=== PATIENT | male | born 1955 | race Caucasian/White ===

== ENCOUNTER 2020-01-28 02:43 | Outpatient (CLI) | payer BC, SELFPAY ==
[2020-01-28 18:02] LABS: SARS-CoV-2 RNA PCR Negative
== END 2020-01-28 02:44 | disposition home or self-care (01) ==
LOC: ANHCOVIDDT 02:44
PROVIDERS: PCP Family Medicine; Visit Provider Internal Medicine Cardiovascular Disease
DX: Z01.812 Encounter for preprocedural laboratory examination (principal); Z20.828 Contact with and (suspected) exposure to other viral communicable diseases
CPT/HCPCS: 87635; C9803; U0003

== ENCOUNTER 2020-01-31 02:14 | Day surgery (SDC) | payer BC, SELFPAY ==
[2020-01-28 13:35] VITALS: BMI 30.2
[2020-01-31] VITALS (12 sets, daily range): BP systolic 109–168; BP diastolic 52–116; PULSE 72–111; RESP 11–23; TEMP 36.2; O2SAT 97–100
--- NOTE | 2020-01-31 08:30 | ECG_ITS ---
Measurements Intervals [place] Rate: 87 P: [place]: 0 QRS: 51 QRSD: 92 T: -2 QT: 353 QTc: 427 Interpretive Statements ATRIAL FIBRILLATION BORDERLINE ST-T WAVE ABNORMALITY- ANTEROLAT/INF LEADS BASELINE ARTIFACT- II, III, AVF, V3 ABNORMAL ECG Electronically Signed On 01-31-2020 8:52:36 CERTIFIED TEACHER ASSISTANT by Darwin Boland D.O.
[2020-01-31 08:54] LABS: INR 1.5; Prothrombin Time 17.4 Seconds (11.1-14.7)
[2020-01-31 08:55] LABS: Anion Gap 5 mmol/L (8-16); Blood Urea Nitrogen 13 mg/dL (9-20); Calcium 9.3 mg/dL (8.4-10.2); Carbon Dioxide 27 mmol/L (22-30); Chloride 108 mmol/L (98-107); Estimated CRCL calculation 81 ml/min; Estimated Glomerular Filt Rate > 60; Glucose 116 mg/dL (75-110); Magnesium 2.2 mg/dL (1.6-2.3); Potassium 4.2 mmol/L (3.4-5.0); Sodium 140 mmol/L (137-145)
[2020-01-31 09:12] LABS: T4 Thyroxine 7.06 ug/dL (5.53-11.0)
--- NOTE | 2020-01-31 09:44 | WPDHPUPDATE1 ---
History and Physical Update Update Date/Time: 01/31/20 09:44 History and Physical has been reviewed, including an updated exam of the patient. There are NO changes in the patient's condition. Date of service 01/31/2020 Subjective: No chest pain or shortness of breath Objective: Irregular irregular rhythm remains Assessment: Atrial fibrillation Plan: MARITZA guided cardioversion Risks, benefits, and alternatives have been discussed and questions answered. Patient agrees to proceed with procedure.
--- NOTE | 2020-01-31 09:45 | WPDMODSED ---
Moderate Sedation Note-Pt Data Patient Data Diagnosis: Atrial fibrillation Present Complaint: atrial fibrillation Procedure to be performed/Plan: 1. Multiplanar transesophageal echocardiography with color flow and pulse wave Doppler 2. Agitated saline study 3. Electrical cardioversion 4. Moderate sedation Allergies Allergy/AdvReac Type Severity Reaction Status Date / Time azithromycin AdvReac Severe BAD GI Unverified 01/28/20 13:39 TRACT REACTION THAT HAD EFFECTS FOR 6 MONTHS Home Medications Medication Instructions Recorded Confirmed Type atorvastatin 20 mg tablet 20 mg PO DAILY #90 tablet 12/27/19 01/28/20 Rx rivaroxaban 20 mg tablet 20 mg PO DAILY #30 tablet 01/03/20 01/28/20 Rx Adults Multivitamin 1 tab-cap PO DAILY 01/28/20 01/28/20 History Burkinan Ginseng 500 mg PO DAILY 01/28/20 01/28/20 History calcium carb-mag ox-zinc gluc 1 tablet PO DAILY 01/28/20 01/28/20 History lysine [L-Lysine] 500 mg PO DAILY 01/28/20 01/28/20 History Current Medications: Active Medications Sodium Chloride (Normal Saline Iv) 1,000 mls @ 30 mls/hr IV CONT .Q24H JOSE RAFAEL Sedation/Anesthesia: No previous sedation/anesthesia problems (including family history). [facility] Surgical History Surgical History History of right knee surgery removal of nail Family History Family History Mother Alzheimer disease Mother Family history of Alzheimer's disease Social History Social History Smoking status: Never smoker Second hand tobacco smoke exposure: No Smoking end date: 03/31/76 Alcohol intake: current Drinks per week: 2 Substance use: never Substance use type: does not use Living arrangements: with family Gender identity (if verbalized by the patient): Male Sexual Orientation (if Verbalized by the Patient): Straight or Heterosexual Spiritual care concerns: No Mod Sed Physical Exam Physical Exam Pre Procedural Exam: Normal: Appearance, Eyes, Ears, Nose, Neck, Throat, Airway, Lungs, Heart Size, Heart Rate, Neuro Exam, Abdomen, Extremities and Skin and Variation: Heart Rhythm ( irregular irregular) Hours since solid foods: 12 Hours since liquid intake: 12 Internal Medicine - PN: Obj Da Vital Signs Vital Signs: Vital Signs - 24 hr 01/31/20 08:40 Temperature 36.2 C L Pulse Rate 77 Respiratory Rate 18 Blood Pressure 133/91 H Pulse Oximetry 99 Meds/Results Medications: Active Medications Generic Name Dose Route Start Last Admin Trade Name Ila PRN Reason Stop Dose Admin Sodium Chloride 1,000 mls @ 30 mls/hr 01/31/20 05:55 Normal Saline Iv IV CONT .Q24H JOSE RAFAEL Labs CBC & Chem 7: 01/31/20 08:38 01/31/20 08:38 Labs: Laboratory Results - last 24 hr 01/31/20 01/31/20 01/31/20 08:38 08:38 08:38 PT 17.4 H INR 1.5 Sodium 140 Potassium 4.2 Chloride 108 H Carbon Dioxide 27 Anion Gap 5 L BUN 13 Creatinine 0.90 Estim Creat Clear Calc 81 Estimated GFR > 60 Glucose 116 H Calcium 9.3 Magnesium 2.2 TSH 2.160 Thyroxine (T4) 7.06 ASA Classification/Sedation ASA Classification/Sedation ASA Class: II Emergent: No Risks: Risks, benefits and alternatives explained and patient/family accepted plan for sedation. Patient re-evaluated immediately prior to sedation.
--- NOTE | 2020-01-31 10:22 | ECG_ITS ---
Measurements Intervals [place] Rate: 73 P: 40 [place]: 215 QRS: 21 QRSD: 87 T: 19 QT: 386 QTc: 428 Interpretive Statements SINUS RHYTHM WITH FIRST DEGREE AV BLOCK POSSIBLE LEFT ATRIAL ENLARGEMENT ABNORMAL ECG Electronically Signed On 01-31-2020 10:25:47 MANNEQUIN MOLDER by Darwin Boland D.O.
--- NOTE | 2020-01-31 10:26 | P.PCNTEECA_ITS ---
IRINEO with Cardioversion Date of procedure: 01/31/20 Procedure Type: 1. Multiplanar transesophageal echocardiography with color flow and pulse wave Doppler 2. Agitated saline study 3. Electrical cardioversion 4. Moderate sedation Diagnosis: atrial fibrillation Indications: atrial fibrillation Description of Procedure: after discussing the risks, benefits and alternatives of the procedure the patient agreeable via verbal and written informed consent. Risks discussed included esophageal rupture perforation, skin irritation or burn, shocking into a more problematic heart rhythm, stroke, , need for surgery, sore throat. After written informed consent was signed and after establishing continuous telemetry monitoring, pulse oxygenation and serial blood pressure assessments Time-out was taken and sedation started. Procedure start time 9:59 a.m. Procedure stop time 10:20 a.m. Complications: None Blood loss: None Sedation: 10 cc of viscous lidocaine gargle and swallow for topical anesthetic. 6 mg of Versed and 100 mcg of fentanyl given in divided dosages. Medications were administered and patient was monitored by Al Foster RN Findings: Irineo: normal left ventricular size and function with ejection fraction of 60%. Mild left ventricular hypertrophy. Normal right ventricular size and function. Mild left atrial enlargement. Normal right atrial size. there is epin-th-pubhtwgj mitral regurgitation with possible very mild posterior leaflet prolapse. aortic valve is trileaflet with trivial aortic insufficiency. Tricuspid valve is normal with mild tricuspid regurgitation. Pulmonic valve is normal trivial pulmonic insufficiency. There is no pericardial effusion. Aortic root is normal in size measuring 2.8 cm. The left atrial appendage is normal without evidence of mass or thrombus with pulse-wave velocities of up to 100 centimeters/second. The atrial septum is intact without agitated saline evidence or color flow evidence of shunting. Electrical cardioversion: Successful congregational of sinus rhythm using 100 joules of synchronized biphasic energy. Immediately after cardioversion, patient went into 2-1 flutter with a heart rate in the 120s but within a minute or 2 converted back to sinus rhythm without intervention Conclusion: 1. Normal left ventricular size and function with mild left ventricular hypertrophy 2. Fyuq-tw-tdwvqqoz mitral regurgitation 3. Mild tricuspid regurgitation 4. Intact atrial septum with negative agitated saline study 5. Normal left atrial appendage 6. successful electrical cardioversion with Normal sinus rhythm is restored using 100 joules of biphasic synchronized energy 7. Moderate sedation
--- NOTE | 2020-01-31 12:16 | SUR.PHASEII ---
1205-pt given D/C orders and instructions given. Questions answered and verbalized understanding. AOx4. PIV removed intact. Taken via wheelchair to waiting vehicle. No distress noted or verbalized at time of D/C.
== END 2020-01-31 12:05 | disposition home or self-care (01) ==
PROVIDERS: PCP Family Medicine; Visit Provider Internal Medicine Cardiovascular Disease
PROC: 5A2204Z Restoration of Cardiac Rhythm, Single (ICD-10-PCS; principal; 2020-01-31 09:30)
PROC: (CPT 93312; 2020-01-31 09:30)
DX: I48.91 Unspecified atrial fibrillation (principal); I34.0 Nonrheumatic mitral (valve) insufficiency; I36.1 Nonrheumatic tricuspid (valve) insufficiency
CPT/HCPCS: 36415; 80048; 83735; 84436; 84443; 85610; 92960; 93005; 93312; 93320; 93325; J2250; J3010; J7040

== ENCOUNTER 2020-02-29 01:55 | Outpatient (CLI) | payer BC, SELFPAY ==
[2020-02-29 19:16] LABS: SARS-CoV-2 RNA PCR Negative
== END 2020-02-29 01:56 | disposition home or self-care (01) ==
LOC: ANHCOVIDDT 01:56
PROVIDERS: PCP Family Medicine; Visit Provider Specialist
DX: Z01.812 Encounter for preprocedural laboratory examination (principal); Z20.828 Contact with and (suspected) exposure to other viral communicable diseases
CPT/HCPCS: 87635; C9803; U0003

== ENCOUNTER 2020-03-03 05:17 | Day surgery (SDC) | payer BC, SELFPAY ==
[2020-03-02 16:00] VITALS: BMI 30.3
[2020-03-03] VITALS (14 sets, daily range): BP systolic 120–149; BP diastolic 80–100; PULSE 81–100; RESP 12–17; TEMP 36.2–36.6; O2SAT 95–98; BMI 29.9
[2020-03-03 09:08] LABS: Basophils Absolute Auto 0.1 K/mm3 (0.0-0.1); Basophils Percent Auto 0.7 % (0.2-1.2); Eosinophils Absolute Auto 0.2 K/mm3 (0-0.3); Eosinophils Percent Auto 1.9 % (0-4.4); Hematocrit 50.8 % (42.0-52.0); Hemoglobin 16.7 g/dL (14.0-18.0); Immature Granulocyte Absolute 0.03 K/mm3 (0.00-0.031); Immature Granulocyte Percent A 0.4 % (0-0.5); Mean Corpuscular HGB Conc 32.9 g/dl (32-36); Mean Corpuscular Hemoglobin 28.9 pg (26-34); Mean Platelet Volume 9.7 fl (7.4-10.4); Monocytes Absolute Auto 0.6 K/mm3 (0.1-0.6); Monocytes Percent Auto 7.6 % (2.6-8.5); Neutrophils Absolute Auto 5.4 K/mm3 (1.3-6.7); Neutrophils Percent Auto 64.4 % (45.5-73.1); Platelet Count Result 146 k/mm3 (150-375); Red Blood Count 5.77 M/mm3 (4.6-6.20); Red Cell Distribution Width 13.4 % (11.5-14.5); White Blood Count 8.4 K/mm3 (4.5-10.0)
[2020-03-03 09:22] LABS: Anion Gap 7 mmol/L (8-16); Blood Urea Nitrogen 14 mg/dL (9-20); Calcium 9.3 mg/dL (8.4-10.2); Carbon Dioxide 27 mmol/L (22-30); Chloride 107 mmol/L (98-107); Estimated CRCL calculation 67 ml/min; Estimated Glomerular Filt Rate > 60; Glucose 119 mg/dL (75-110); Potassium 4.1 mmol/L (3.4-5.0); Sodium 141 mmol/L (137-145)
--- NOTE | 2020-03-03 10:04 | WPDMODSED ---
Moderate Sedation Note-Pt Data Patient Data Diagnosis: Persistent atrial fibrillation following attempt at cardioversion recently electrocardiographically abnormal Lexiscan stress test Present Complaint: no complaints Procedure to be performed/Plan: left heart catheterization Allergies Allergy/AdvReac Type Severity Reaction Status Date / Time azithromycin AdvReac Severe BAD GI Unverified 01/28/20 13:39 TRACT REACTION THAT HAD EFFECTS FOR 6 MONTHS Home Medications Medication Instructions Recorded Confirmed Type atorvastatin 20 mg tablet 20 mg PO DAILY #90 tablet 12/27/19 03/02/20 Rx rivaroxaban 20 mg tablet 20 mg PO DAILY #30 tablet 01/03/20 03/02/20 Rx Adults Multivitamin 1 tab-cap PO DAILY 01/28/20 03/02/20 History Tanzanian Ginseng 500 mg PO DAILY 01/28/20 03/02/20 History calcium carb-mag ox-zinc gluc 1 tablet PO DAILY 01/28/20 03/02/20 History lysine [L-Lysine] 500 mg PO DAILY 01/28/20 03/02/20 History Current Medications: Active Medications Sodium Chloride (Normal Saline Iv) 500 mls @ 100 mls/hr IV CONT .Q5H JOSE RAFAEL Sedation/Anesthesia: No previous sedation/anesthesia problems (including family history). [facility] Surgical History Surgical History History of right knee surgery removal of nail Family History Family History Mother Alzheimer disease Mother Family history of Alzheimer's disease Social History Social History Smoking status: Never smoker Second hand tobacco smoke exposure: No Smoking end date: 03/31/76 Alcohol intake: current Drinks per week: 2 Substance use: never Substance use type: does not use Living arrangements: with family Gender identity (if verbalized by the patient): Male Spiritual care concerns: No Mod Sed Physical Exam Physical Exam Pre Procedural Exam: Normal: Appearance, Neck, Throat, Airway, Lungs, Heart Size, Heart Rate, Neuro Exam and Extremities and Variation: Heart Rhythm ( atrial fibrillation) Hours since solid foods: 12 Hours since liquid intake: 12 Internal Medicine - PN: Obj Da Vital Signs Vital Signs: Vital Signs - 24 hr 03/03/20 09:16 Temperature 36.6 C Pulse Rate 90 Respiratory Rate 17 Blood Pressure 120/87 Pulse Oximetry 97 Meds/Results Medications: Active Medications Generic Name Dose Route Start Last Admin Trade Name Ila PRN Reason Stop Dose Admin Sodium Chloride 500 mls @ 100 mls/hr 03/03/20 08:25 Normal Saline Iv IV CONT .Q5H JOSE RAFAEL Labs CBC & Chem 7: 03/03/20 08:58 03/03/20 08:58 Labs: Laboratory Results - last 24 hr 03/03/20 03/03/20 08:58 08:58 WBC 8.4 RBC 5.77 Hgb 16.7 Hct 50.8 MCV 88.0 MCH 28.9 MCHC 32.9 RDW 13.4 Plt Count 146 L MPV 9.7 Immature Gran % (Auto) 0.4 Neut % (Auto) 64.4 Lymph % (Auto) 25.0 [place] % (Auto) 7.6 Eos % (Auto) 1.9 Baso % (Auto) 0.7 Lymph # (Auto) 2.10 [place] # (Auto) 0.6 Eos # (Auto) 0.2 Baso # (Auto) 0.1 Abs Immat Gran (auto) 0.03 Absolute Neuts (auto) 5.4 Absolute Nucleated RBC 0.0 Nucleated RBC % 0.0 Sodium 141 Potassium 4.1 Chloride 107 Carbon Dioxide 27 Anion Gap 7 L BUN 14 Creatinine 1.00 Estim Creat Clear Calc 67 Estimated GFR > 60 Glucose 119 H Calcium 9.3 ASA Classification/Sedation ASA Classification/Sedation ASA Class: II Emergent: No Risks: Risks, benefits and alternatives explained and patient/family accepted plan for sedation. Patient re-evaluated immediately prior to sedation.
--- NOTE | 2020-03-03 10:32 | P.PCNCC_ITS ---
Cardiac Cath Procedure Note Date of procedure:: 03/03/20 Performing physician:: Denton Schmidt MD Indication:: electrocardiographically abnormal nuclear stress test ( normal nuclear image) persistent atrial fibrillation Brief clinical history:: this is a 64-year-old man who presented with recent onset of atrial fibrillation. An attempt at cardioversion was successful but shortly thereafter atrial fib recurred. Following this a nuclear stress test was done in our office which demonstrated no perfusion abnormalities but ST segment changes. Procedure Procedure performed:: Left heart catheterization with left ventriculography and coronary angiography Sedation/Medication given:: fentanyl 50 mg Versed 2 mg case start time 10:10 a.m. case end time 10:29 a.m. sedation provided by Jayla Camarillo RN, trained observer Access site:: right femoral artery Estimated blood loss:: 10-15 cc Procedure note:: patient was brought to the cardiac catheterization lab in the postabsorptive state. The right femoral triangle was prepared and draped in the usual fashion. Anesthesia was provided with 1% lidocaine infiltrated locally. Using the modified Seldinger technique a 5 Stateless sheath was placed into the femoral artery left heart catheterization was carried out. A 5 Stateless angled pigtail catheter was used to record left-sided hemodynamics and to perform an an left ventricular ejection in the JORGE projection. After this the pigtail catheter was withdrawn. A 5 Stateless FL4 catheter was used to engage inject the left coronary artery in multiple projections. A 5 Stateless JR4 catheter was used to engage inject the right coronary artery. The procedure was then terminated angiogram was done of the femoral artery through the sheath after which I determined the sheath will be removed manually removed. Use taken to the holding area for sheath removal and recovery. He left the laboratory veterinarian with no evidence of a groin hematoma. Findings:: Hemodynamics: Central aortic pressure is 118/64 left ventricle 118/0 end-diastolic 10. No gradient across the aortic valve upon pullback. Left ventricle: The LV is normal in size all segments contract appropriately the global ejection fraction is visually estimated to be 60%. The mitral valve is competent. Left main coronary artery is nicely patent the LAD is a moderate caliber vessel extending down to around the apex. There is mild atherosclerosis throughout the LAD with several 40-50% lesions proximally, mid and distally. None of these appear to be approaching flow- limiting in nature. Circumflex is a large caliber vessel that is dominant to the posterior circulation. The stent midportion of the trunk of the circumflex also has modest atherosclerosis involving the origin of the major OM branch. This bifurcation has about 40-50% stenosis angiographically. The distal circumflex posterior vessels are free of disease right coronary artery is very small and non dominant. There is a 90% stenosis in the midportion of this small nondominant RCA Conclusion:: 1. left coronary dominant circulation with modest coronary disease as described above. No significant left coronary lesions 2. 90% stenosis in the midportion of the small non dominant RCA 3. normal left ventricular systolic function Denton Schmidt MD FACC
--- NOTE | 2020-03-03 16:58 | SUR.PHASEII ---
1655 D/C instructions reviewed with patient and questions answered;iv d/c'd cath intact pressure applied;pt transported to [facility] via where his transported home in private vehicle.
== END 2020-03-03 16:55 | disposition home or self-care (01) ==
PROVIDERS: PCP Family Medicine; Visit Provider Specialist
PROC: 4A023N7 Measurement of Cardiac Sampling and Pressure, Left Heart, Percutaneous Approach (ICD-10-PCS; CPT 93452; principal; 2020-03-03 10:00)
DX: I25.10 Atherosclerotic heart disease of native coronary artery without angina pectoris (principal); R94.39 Abnormal result of other cardiovascular function study; I48.91 Unspecified atrial fibrillation; E78.5 Hyperlipidemia, unspecified; G47.33 Obstructive sleep apnea (adult) (pediatric); I42.9 Cardiomyopathy, unspecified; Z86.73 Personal history of transient ischemic attack (TIA), and cerebral infarction without residual deficits; Z87.891 Personal history of nicotine dependence; Z79.01 Long term (current) use of anticoagulants
CPT/HCPCS: 36415; 80048; 85025; 93458; C1887; C1894; J1644; J2250; J3010; J7040

== ENCOUNTER 2020-05-15 09:33 | Inpatient (IN) | payer BC, SELFPAY ==
[2020-05-15] VITALS (11 sets, daily range): BP systolic 125–149; BP diastolic 73–96; PULSE 60–99; RESP 16–20; TEMP 36.1–36.6; O2SAT 96–98; BMI 29.5
--- NOTE | 2020-05-15 08:00 | ADMGEN ---
This patient, Jimmy Juarez, was admitted to IMU Room 201-01. Patient/family oriented to hospital policies and general routines including ID bracelet, bed and alarms, visiting hours, pain management, procedures, bathroom and other care routines, personal items, smoking policy, room service/diet, and visiting hours. Information on how to activate the Rapid Response Team has been discussed. Patient/Family are encouraged to report perceived risks to care and to ask questions if they do not understand what they are told or what they should do.
--- NOTE | 2020-05-15 08:49 | ECG_ITS ---
Measurements Intervals [place] Rate: 86 P: [place]: 0 QRS: 45 QRSD: 93 T: 27 QT: 339 QTc: 408 Interpretive Statements ATRIAL FIBRILLATION ABNORMAL ECG Electronically Signed On 05-15-2020 9:55:15 VISITOR SERVICES TECHNICIAN by Darwin Boland D.O.
--- NOTE | 2020-05-15 08:51 | PM.IMHP ---
H&P: HPI History of Present Illness Date/Time: 05/15/20 08:51 Chief Complaint: Atrial fibrillation, sotalol load Narrative: Jimmy Juarez is a 65 year old male with atrial fibrillation. He is a patient of [email or web address] who II began seeing a few months ago. He did have a TIA in May 2018. Ultrasound of the carotids showed some mild disease, echocardiogram was unremarkable as was ekg monitor. However last December he was found to be in atrial fibrillation. He was started on Xarelto 20 mg p.o. daily. He did have an outpatient cardioversion which was temporarily successful but he has reverted back into sinus rhythm. Stress test was slightly abnormal and he did undergo a cardiac catheterization February 2020 showing serial 40-50% lesions in LAD, 45-50% blockage and bifurcational circumflex stenosis. 90% mid small non dominant RCA. Echocardiogram showed ejection fraction 58% without valve problems. He saw electrophysiology for consideration of ablation versus rhythm management versus rate control. Patient prefers to be in sinus rhythm. At this point though he wishes to try anti rhythmic therapy. Therefore given his coronary disease, sotalol would be a good choice. He is therefore admitted for sotalol loading. He otherwise denies any chest pain, shortness of breath, syncope, presyncope, paroxysmal nocturnal dyspnea, orthopnea, edema, palpitations or bleeding problem Review of Systems Review of Systems: All systems reviewed & are unremarkable except as noted in HPI and below Constitutional: Constitutional: Denies weakness Eyes: Eyes: Denies blurry vision ENT: Reports Normal hearing present Cardiovascular: Cardiovascular: Denies chest pain Respiratory: Respiratory: Denies dyspnea Gastrointestinal: Gastrointestinal: Denies abdominal pain Genitourinary: Genitourinary: Denies dysuria Musculoskeletal: Musculoskeletal: Denies back pain and Denies neck pain Integumentary/Breasts: Skin/Breast: Denies dry skin Neurologic: Denies headache(s) and Denies numbness Psychiatric: Psychiatric: Denies anxiety and Denies confusion Endocrine: Endocrine: Denies fatigue Hematologic/Lymphatic: Hematologic/Lymphatic: Denies easy bleeding Allergic/Immunologic: Allergic/Immunologic: Denies GI upset with certain foods PMFSH Past Medical History Medical History (Updated 05/15/20 @ 08:54 by Ellis Barnes MD) BMI 30.0-30.9,adult History of TIA (transient ischemic attack) Hyperlipidemia New onset atrial fibrillation Surgical History Surgical History History of right knee surgery removal of nail Family History Family History Mother Alzheimer disease Mother Family history of Alzheimer's disease Social History Social History Smoking status: Never smoker Second hand tobacco smoke exposure: No Smoking end date: 03/31/76 Alcohol intake: current Drinks per week: 2 Substance use: never Substance use type: does not use Gender identity (if verbalized by the patient): Male Spiritual care concerns: No Meds Home Medications and Allergies Home Medications Medication Instructions Recorded Confirmed Type rivaroxaban 20 mg tablet 20 mg PO DAILY #30 tablet 01/03/20 05/15/20 Rx Adults Multivitamin 1 tab-cap PO DAILY 01/28/20 05/15/20 History Maltese Ginseng 500 mg PO DAILY 01/28/20 05/15/20 History calcium carb-mag ox-zinc gluc 1 tablet PO DAILY 01/28/20 05/15/20 History lysine [L-Lysine] 500 mg PO DAILY 01/28/20 05/15/20 History atorvastatin 20 mg tablet 20 mg PO DAILY #90 tablet 03/08/20 05/15/20 Rx Allergies Allergy/AdvReac Type Severity Reaction Status Date / Time azithromycin AdvReac Severe BAD GI Unverified 01/28/20 13:39 TRACT REACTION THAT HAD EFFECTS FOR 6 MONTHS Vital Signs Vital Signs -
[2020-05-15 09:50] LABS: Hematocrit 48.8 % (42.0-52.0); Hemoglobin 16.2 g/dL (14.0-18.0); Mean Corpuscular HGB Conc 33.2 g/dl (32-36); Mean Corpuscular Hemoglobin 29.2 pg (26-34); Mean Corpuscular Volume 88.1 fl (80-100); Mean Platelet Volume 10.9 fl (7.4-10.4); Platelet Count Result 141 k/mm3 (150-375); Red Blood Count 5.54 M/mm3 (4.6-6.20); Red Cell Distribution Width 13.2 % (11.5-14.5); White Blood Count 8.3 K/mm3 (4.5-10.0)
[2020-05-15] MEDS: SOTALOL HCL 80 MG TABLET PO ×2 (09:58→21:16)
[2020-05-15] MEDS: MULTIVITAMINS THERAPEUTIC TAB (*BKC) 1 TABLET PO (09:58)
[2020-05-15 10:00] LABS: Alanine Aminotransferase 42 U/L (4-50); Alkaline Phosphatase 67 U/L (38-126); Anion Gap 5 mmol/L (8-16); Aspartate Amino Transferase 30 U/L (17-59); Bilirubin,Total 0.5 mg/dL (0.2-1.3); Blood Urea Nitrogen 18 mg/dL (9-20); Calcium 9.4 mg/dL (8.4-10.2); Carbon Dioxide 28 mmol/L (22-30); Chloride 109 mmol/L (98-107); Cholesterol 117 mg/dL (0-200); Estimated CRCL calculation 66 ml/min; Estimated Glomerular Filt Rate > 60; Glucose 116 mg/dL (75-110); HDL Direct 30 mg/dL; Magnesium 1.9 mg/dL (1.6-2.3); Potassium 4.1 mmol/L (3.4-5.0); Sodium 142 mmol/L (137-145); Triglycerides 204 mg/dL (<150)
[2020-05-15 10:12] LABS: LDL Cholesterol Direct 67 mg/dL
[2020-05-15] MEDS: RIVAROXABAN 20 MG TABLET PO (16:47)
[2020-05-15] MEDS: ATORVASTATIN 20 MG TABLET PO (21:16)
--- NOTE | 2020-05-15 23:26 | PC.NURSE ---
Report called to Eleni CHENG in chest pain center.
[2020-05-16] VITALS (16 sets, daily range): BP systolic 104–134; BP diastolic 59–77; PULSE 58–85; RESP 14–20; TEMP 36.5–37.3; O2SAT 96–99
[2020-05-16] MEDS: MULTIVITAMINS THERAPEUTIC TAB (*BKC) 1 TABLET PO (08:24)
[2020-05-16] MEDS: SOTALOL HCL 80 MG TABLET PO ×2 (08:24→20:10)
--- NOTE | 2020-05-16 09:00 | ECG_ITS ---
Measurements Intervals [place] Rate: 69 P: 50 [place]: 228 QRS: 44 QRSD: 90 T: 35 QT: 394 QTc: 422 Interpretive Statements SINUS RHYTHM WITH FIRST DEGREE AV BLOCK POSSIBLE LEFT ATRIAL ENLARGEMENT BASELINE WANDER- II, AVR, AVF, V6 ABNORMAL ECG Electronically Signed On 05-16-2020 9:14:42 GRID MAKER by Darwin Boland D.O.
--- NOTE | 2020-05-16 09:52 | PM.PNCARD ---
Progress Note: A&P Assessment and Plan (1) Hyperlipidemia: Qualifiers: Hyperlipidemia type: mixed hyperlipidemia Qualified Code(s): E78.2 - Mixed hyperlipidemia Code(s): E78.5 - Hyperlipidemia, unspecified Status: Acute Assessment and Plan: Continue statin. (2) BMI 30.0-30.9,adult: Code(s): Z68.30 - Body mass index [BMI]30.0-30.9, adult Status: Acute Assessment and Plan: Improved lately (3) New onset atrial fibrillation: Code(s): I48.91 - Unspecified atrial fibrillation Status: Acute Assessment and Plan: Continue Xarelto. EKG today. Continue sotalol. DC home tomorrow after complete sotalol load (4) History of TIA (transient ischemic attack): Code(s): Z86.73 - Personal history of transient ischemic attack (TIA), and cerebral infarction without residual deficits Status: Acute Assessment and Plan: Continue anticoagulation Subjective Date/time seen: 05/16/20 09:52 Interval history: Reason for admission: 65-year-old for sotalol loading in atrial fibrillation Date of service 05/16/2020: He feels well. No chest pain, shortness of breath. He did convert to sinus rhythm Review of Systems Review of Systems: All systems reviewed & are unremarkable except as noted in HPI and below Constitutional: Constitutional: Denies fatigue, Denies headache(s) and Denies weakness Eyes: Eyes: Denies blurry vision ENT: Reports Normal hearing present, Denies headache(s) and Denies neck pain Cardiovascular: Cardiovascular: Denies chest pain and Denies dyspnea Respiratory: Respiratory: Denies dyspnea Gastrointestinal: Gastrointestinal: Denies abdominal pain Genitourinary: Genitourinary: Denies dysuria Musculoskeletal: Musculoskeletal: Denies back pain, Denies neck pain and Denies numbness Integumentary/Breasts: Skin/Breast: Denies dry skin Neurologic: Reports Normal hearing present, Denies confusion, Denies headache(s), Denies numbness and Denies weakness Psychiatric: Psychiatric: Denies anxiety and Denies confusion Endocrine: Endocrine: Denies fatigue Hematologic/Lymphatic: Hematologic/Lymphatic: Denies easy bleeding Allergic/Immunologic: Allergic/Immunologic: Denies GI upset with certain foods Exam Narrative: Exam Narrative: Alert oriented and appears stated age. Const: General: comfortable and no acute distress; No confusion Orientation/consciousness: No confusion HENMT: General nose exam: no epistaxis Eyes: Sclera: sclerae normal Neck: Neck: supple and no JVD Chest: Other: No reproducible chest wall pain to palpation Resp: Auscultation: clear to auscultation bilaterally Cardio: Rate: regular rate Rhythm: regular rhythm GI: Inspection: normal to inspection Skin: General skin exam: normal color Neuro: General: No confusion Cranial nerves: Yes Normal hearing present Cognition (Neuro): normal cognition Speech: normal speech Extrem: General: normal to inspection and no edema Psych: Mental Status: mental status grossly normal Objective Data Vital Signs Vital Signs: Vital Signs - 24 hr 05/15/20 09:58 05/15/20 10:00 05/15/20 12:00 Temperature 36.1 C L Pulse Rate 99 94 86 Respiratory Rate 16 Blood Pressure 146/96 H Pulse Oximetry 97 05/15/20 14:00 05/15/20 16:00 05/15/20 18:00 Temperature 36.2 C L Pulse Rate 85 83 80 Respiratory Rate 16 Blood Pressure 142/73 H Pulse Oximetry 97 05/15/20 20:00 05/15/20 21:16 05/15/20 22:00 Temperature 36.6 C Pulse Rate 79 94 77 Respiratory Rate 20 Blood Pressure 149/79 H Pulse Oximetry 98 05/15/20 23:45 05/16/20 00:00 05/16/20 01:53 Temperature 36.6 C Pulse Rate 92 77 82 Respiratory Rate 18 Blood Pressure 125/82 Pulse Oximetry 96 05/16/20 02:00 05/16/20 04:00 05/16/20 05:52 Temperature 36.5 C Pulse Rate 60 58 L 70 Respiratory Rate 14 Blood Pressure 115/77 Pulse Oximetry 97 05/16/20
[2020-05-16] MEDS: RIVAROXABAN 20 MG TABLET PO (17:06)
[2020-05-16] MEDS: ATORVASTATIN 20 MG TABLET PO (20:10)
[2020-05-17] VITALS (7 sets, daily range): BP systolic 120–124; BP diastolic 75–80; PULSE 56–69; RESP 18–19; TEMP 36.4; O2SAT 99
[2020-05-17] MEDS: SOTALOL HCL 80 MG TABLET PO (08:40)
[2020-05-17] MEDS: MULTIVITAMINS THERAPEUTIC TAB (*BKC) 1 TABLET PO (08:40)
--- NOTE | 2020-05-17 09:00 | ECG_ITS ---
Measurements Intervals [place] Rate: 65 P: 60 [place]: 231 QRS: 49 QRSD: 92 T: 45 QT: 415 QTc: 434 Interpretive Statements SINUS RHYTHM WITH FIRST DEGREE AV BLOCK POSSIBLE LEFT ATRIAL ENLARGEMENT ABNORMAL ECG Electronically Signed On 05-17-2020 9:36:45 SHOE LACER by Darwin Boland D.O.
--- NOTE | 2020-05-17 12:39 | PM.DS ---
DS: Admitting Diagnosis Admitting Diagnosis Admitting Diagnosis: Atrial fibrillation and sotalol loading DS: Discharge Diagnosis Discharge Diagnosis (1) New onset atrial fibrillation: Code(s): I48.91 - Unspecified atrial fibrillation Status: Acute Assessment and Plan: Continue sotalol 80 mg p.o. b.i.d. as well as Xarelto 20 mg daily (2) Hyperlipidemia: Qualifiers: Hyperlipidemia type: mixed hyperlipidemia Qualified Code(s): E78.2 - Mixed hyperlipidemia Code(s): E78.5 - Hyperlipidemia, unspecified Status: Acute Assessment and Plan: Continue statin (3) History of TIA (transient ischemic attack): Code(s): Z86.73 - Personal history of transient ischemic attack (TIA), and cerebral infarction without residual deficits Status: Acute Assessment and Plan: On anticoagulation DS: Summary Hospital Course Hospital Course: Patient is 65-year-old male who has atrial fibrillation. He was admitted for sotalol loading. He was initiated on sotalol 80 mg p.o. b.i.d.. He did convert with sotalol to sinus rhythm. He tolerated this medication well. Labs were drawn while in the hospital which were generally unremarkable. He stayed in the hospital up until full load and his QTC did not significantly prolonged. EKGs were performed on a daily basis. At this point he is okay to go home Time Spent with Patient Time attestation: Total time spent providing and/or coordinating discharge services: Greater than 30 minutes Exam Narrative: Exam Narrative: Alert oriented appears to be in no acute distress Const: General: comfortable and no acute distress; No in distress HENMT: General nose exam: Normal nares present Eyes: Sclera: sclerae normal Neck: Neck: supple and no JVD Resp: Auscultation: clear to auscultation bilaterally Cardio: Rate: regular rate Rhythm: regular rhythm GI: GI Palp: Yes Soft to palpation and No Tenderness to palpation present (GI) Skin: General skin exam: normal color Neuro: General: gait normal Motor exam (neuro): Normal motor muscle tone present throughout Extrem: General: normal to inspection and no edema Psych: Mental Status: mental status grossly normal DS: Data Data Completed and Pending Completed studies during hospitalization: EKG performed showing no significant QT prolongation with sotalol Pending studies at discharge: None Discharge Plan Discharge Attending physician on discharge: Cehlo Barnes Discharging Clinician: Ellis Barnes Anticipated Discharge Date/Time: 05/17/20 12:42 Patient Disposition: Home, Self-Care Activity: no shower and may shower Diet: heart healthy Wound Care Instructions: follow printed instructions Discharge Instructions: Discharge diet: Heart healthy. Discharge disposition: Home Discharge condition: Good Patient should return to the office if he has any chest pain, shortness of breath, syncope, presyncope, palpitations or any other worrisome signs or symptoms. Patient Instructions: Antibiotic Form Stand Alone Forms: General Discharge Information Follow-up/Referrals: Ellis Barnes MD [Physician] - Discharge Medications: New sotalol 80 mg Tablet 80 mg PO Q12HR Qty: 60 RF: 11 Continued Xarelto 20 mg tablet 20 mg PO DAILY Qty: 30 RF: 6 Hold Instructions: Resume on 03/07/20. RESUME with the evening meal on Saturday, March 07, 2020 Adults Multivitamin 1 tab-cap PO DAILY RF: 0 atorvastatin 20 mg tablet 20 mg PO DAILY Qty: 90 RF: 3 Discontinued Portuguese Ginseng 500 mg PO DAILY RF: 0 lysine [L-Lysine] 500 mg Tablet 500 mg PO DAILY RF: 0 calcium carb-mag ox-zinc gluc 250 mg/70 mg 1 tablet PO DAILY RF: 0 Date of admission: 05/15/20 07:41 Primary Care Provider: Colleen Martell Admitting Provider: Ellis Barnes Attending physician on admission: Ellis Barnes Condition: Stable
== END 2020-05-17 13:47 | disposition home or self-care (01) | DRG 310 ==
LOC: ANHIMU 11:41 → ANHCPC 05-17 12:44 → ANHIMU 05-19 08:51
PROVIDERS: Admitting Provider Internal Medicine Cardiovascular Disease; PCP Family Medicine; Visit Provider Internal Medicine Cardiovascular Disease
DX: I48.91 Unspecified atrial fibrillation (principal); Z51.81 Encounter for therapeutic drug level monitoring; E78.2 Mixed hyperlipidemia; Z86.73 Personal history of transient ischemic attack (TIA), and cerebral infarction without residual deficits; Z79.01 Long term (current) use of anticoagulants
CPT/HCPCS: 36415; 80053; 80061; 83735; 85027; 93005; A9270

== ENCOUNTER → 2022-08-13 09:29 | Outpatient (CLI) | payer MEDICARE, SELFPAY ==
--- NOTE | ~2022-08-13 | MR_ITS ---
EXAMINATION: MR chest wo/w con DATE: 08/13/2022 11:06 INDICATION: Chest mass. TECHNIQUE: Magnetic resonance imaging (MRI) of the chest was performed without and with 18 mL MultiHa nce intravenous contrast. COMPARISON: Chest CT 03/02/2012 FINDINGS: There is mild chronic height loss of multiple thoracic vertebral bodies. There is mild thor acic spondylosis. There is a 4.4 x 2.8 x 4.6 cm nonenhancing mass of increased T1-weighted signal int ensity in the left posterior mediastinum at T10 and T11. IMPRESSION: 1. 4.6 cm cystic mass in the left posterior mediastinum at T10 and T11, stable from 03/02/12, likely b enign. The differential diagnosis includes lymphangioma and foregut duplication cyst. Reviewed, dictated and finalized at location A. IMPRESSION: 1. 4.6 cm cystic mass in the left posterior mediastinum at T10 and T11, stable from 03/02/12, likely benign. The differential diagnosis includes lymphangioma a nd foregut duplication cyst.
--- NOTE | ~2022-08-13 | MR_ITS ---
EXAMINATION: MR abdomen wo/w con DATE: 08/13/2022 11:06 INDICATION: Liver mass. TECHNIQUE: Magnetic resonance imaging (MRI) of the abdomen was performed without and with 18 mL Multi [place] intravenous contrast. COMPARISON: Chest CT 03/02/2012 FINDINGS: There is a 4.4 x 2.7 cm nonenhancing mass of increased T1-weighted signal intensity in the left poste rior mediastinum at T10 and T11. There is a 15 mm cyst in the right hepatic lobe. The gallbladder, sp kwame, pancreas, adrenal glands, and kidneys are normal. There are no dilated loops of bowel. There ar e no pathologically enlarged lymph nodes. There is no free intraperitoneal fluid. IMPRESSION: 1. 15 mm benign cyst in the liver. 2. 4.4 cm cyst in the left posterior mediastinum at T10 and T11, stable from 03/02/2012. The different ial diagnosis includes lymphangioma and foregut duplication cyst. Reviewed, dictated and finalized at location A. IMPRESSION: 1. 15 mm benign cyst in the liver. 2. 4.4 cm cyst in the left posterior mediastinum at T10 and T11, stable from . The differential diagnosis includes lymphangioma and foregut duplicati on cyst.
== END ==
PROVIDERS: PCP Family Medicine; Visit Provider Physician Assistant
DX: R22.2 Localized swelling, mass and lump, trunk (principal); R16.0 Hepatomegaly, not elsewhere classified; K76.89 Other specified diseases of liver
CPT/HCPCS: 71552; 74183; A9577

== ENCOUNTER 2023-08-22 00:38 | Day surgery (SDC) | payer MEDICARE, SELFPAY ==
[2023-08-18 14:08] VITALS: BMI 28.0
--- NOTE | 2023-08-18 14:37 | PC.NURSE ---
Spoke with _PATIENT_ regarding medication _XARELTO_. Pt. verbalizes understanding that the last dose of XARELTO is to be taken on 08/19/2023__ and the Endoscopist will instruct them when to restart after the procedure.
[2023-08-22 07:00] VITALS: BP 134/81; PULSE 87; RESP 16; TEMP 36.2; O2SAT 99
[2023-08-22] MEDS: LACTATED RINGERS 1,000 ML 150 ML IV CONT (07:13)
--- NOTE | 2023-08-22 07:17 | WPDANESEPPF ---
Anes - Initial Pre Proc Eval Procedure: Operation Date: 08/22/23 08:00 Proposed Procedures p Esophagogastroduodenoscopy & Colonoscopy - Pk Sotomayor MD Date/Time: 08/22/23 07:17 Surgeon: Pk Sotomayor MD Pre Op Diagnosis: Dysphagia, personal hx of colon polyps Patient Data Age: 68 Gender: M Height: 1.78 m Weight: 89.3 kg Last Vital Signs Temp 36.2 C L 08/22/23 07:00 Pulse 87 08/22/23 07:00 Resp 16 08/22/23 07:00 BP 134/81 08/22/23 07:00 Pulse Ox 99 08/22/23 07:00 O2 Del Method Room Air 08/22/23 07:00 Allergies Allergy/AdvReac Type Severity Reaction Status Date / Time azithromycin AdvReac Severe BAD GI Verified 08/22/23 06:57 TRACT REACTION THAT HAD EFFECTS FOR 6 MONTHS Home Medications Medication Instructions Recorded Confirmed Type Adults Multivitamin 1 tab-cap PO DAILY 01/28/20 08/22/23 History sotalol 80 mg tablet 80 mg PO Q12HR #60 tabs 05/17/20 08/22/23 Rx valacyclovir 1 gram tablet 1,000 mg PO Q12H PRN cold sores 10/12/21 08/22/23 Rx (Valtrex) #60 tabs rivaroxaban 20 mg tablet (Xarelto) See Rx Instructions .Route 05/06/22 08/22/23 Rx .COMPLEX #30 tabs atorvastatin 20 mg tablet 20 mg PO DAILY #100 tabs 04/13/23 08/22/23 Rx sildenafil 25 mg tablet 25 mg PO DAILY PRN sexual activity 06/24/23 08/22/23 Rx #7 tabs Lactobacillus acidophilus 2 mmu cells PO DAILY 08/18/23 08/22/23 History Patient hx anesthesia problems: none Family hx anesthesia problems: none Results Review: All pre-operative results and documents have been reviewed as part of the pre-operative evaluation. [facility] Past Medical History Medical History (Updated 08/22/23 @ 07:17 by Adriano Martinez DO) BMI 30.0-30.9,adult History of TIA (transient ischemic attack) Hyperlipidemia Kidney stone Liver cyst MRI abdomen, 2022, benign Mediastinal mass MRI July 2022, likely benign, patient declined CT surgery referral New onset atrial fibrillation LEANN (obstructive sleep apnea) cpap Surgical History Surgical History History of right knee surgery removal of nail Family History Family History Mother Alzheimer disease Mother Family history of Alzheimer's disease Social History Social History Smoking status: Never smoker Second hand tobacco smoke exposure: No Smoking end date: 03/31/76 Alcohol intake: current Drinks per week: 2 Alcohol use details: DRINKS/WINE/BEER Substance use: never Substance use type: does not use Lack of Transportation: No Lack of Food: Never True Current Housing: I Have Housing Concerned About Future Housing: No Difficulty Paying Gas/Electric Bills: No Difficulty Paying for Meds: No Currently Unemployed: No Education: Master's Degree or Higher Difficulty w/ Childcare or Family Care: No Living arrangements: with family Gender identity (if verbalized by the patient): Male Sexual Orientation (if Verbalized by the Patient): Straight or Heterosexual Spiritual care concerns: No Agree to blood products: Yes Anes - Eval Final PreProcedure Day of Procedure 08/22/23 07:17 Patient weight: overweight Heart: regular rate and rhythm Lungs: clear to auscultation Airway: Mallampati scale class II Neurological: alert and oriented Last oral intake: >/= 8 hours ASA classification: III Emergent: no Anesthetic plan: proceed Anesthesia type and monitoring: general GIVS and standard monitoring Results Review: All pre-operative results and documents have been reviewed as part of the pre-operative evaluation. Informed Consent: The patient's anesthetic plan and its attendant risks and benefits were discussed with the patient/family/POA. Questions were solicited and answers provide
--- NOTE | 2023-08-22 07:52 | PM.HPGS ---
History of Present Illness History of Present Illness Consent: Risks, benefits, and alternatives have been discussed and questions answered. Patient agrees to proceed with procedure. Chief complaint: Dysphagia, personal hx of colon polyps Narrative: Jimmy Juarez is a 68 year old male with dysphagia to pills last 2 months, last colonoscopy with polyp 7 years ago Review of Systems Review of Systems: All systems reviewed & are unremarkable except as noted in HPI and below PMFSH Past Medical History Medical History (Updated 08/22/23 @ 07:54 by Pk Sotomayor MD) BMI 30.0-30.9,adult Colon polyp Dysphagia History of TIA (transient ischemic attack) Hyperlipidemia Kidney stone Liver cyst MRI abdomen, 2022, benign Mediastinal mass MRI July 2022, likely benign, patient declined CT surgery referral New onset atrial fibrillation LEANN (obstructive sleep apnea) cpap Surgical History Surgical History History of right knee surgery removal of nail Family History Family History Mother Alzheimer disease Mother Family history of Alzheimer's disease Social History Social History Smoking status: Never smoker Second hand tobacco smoke exposure: No Smoking end date: 03/31/76 Alcohol intake: current Drinks per week: 2 Alcohol use details: DRINKS/WINE/BEER Substance use: never Substance use type: does not use Lack of Transportation: No Lack of Food: Never True Current Housing: I Have Housing Concerned About Future Housing: No Difficulty Paying Gas/Electric Bills: No Difficulty Paying for Meds: No Currently Unemployed: No Education: Master's Degree or Higher Difficulty w/ Childcare or Family Care: No Living arrangements: with family Gender identity (if verbalized by the patient): Male Sexual Orientation (if Verbalized by the Patient): Straight or Heterosexual Spiritual care concerns: No Agree to blood products: Yes Meds Home Medications and Allergies Home Medications Medication Instructions Recorded Confirmed Type Adults Multivitamin 1 tab-cap PO DAILY 01/28/20 08/22/23 History sotalol 80 mg tablet 80 mg PO Q12HR #60 tabs 05/17/20 08/22/23 Rx valacyclovir 1 gram tablet 1,000 mg PO Q12H PRN cold sores 10/12/21 08/22/23 Rx (Valtrex) #60 tabs rivaroxaban 20 mg tablet (Xarelto) See Rx Instructions .Route 05/06/22 08/22/23 Rx .COMPLEX #30 tabs atorvastatin 20 mg tablet 20 mg PO DAILY #100 tabs 04/13/23 08/22/23 Rx sildenafil 25 mg tablet 25 mg PO DAILY PRN sexual activity 06/24/23 08/22/23 Rx #7 tabs Lactobacillus acidophilus 2 mmu cells PO DAILY 08/18/23 08/22/23 History Allergies Allergy/AdvReac Type Severity Reaction Status Date / Time azithromycin AdvReac Severe BAD GI Verified 08/22/23 06:57 TRACT REACTION THAT HAD EFFECTS FOR 6 MONTHS Vital Signs Vital Signs - 24 hr 08/22/23 07:00 Temperature 97.2 F L Pulse Rate 87 Respiratory Rate 16 Blood Pressure 134/81 Pulse Oximetry 99 Oxygen Delivery Room Air Exam Const: General: comfortable and no acute distress HENMT: Face/Nose/Sinus: Normal nares present Eyes: General: appearance normal, both eyes and all related structures Neck: Neck: no JVD Resp: Auscultation: clear to auscultation bilaterally Cardio: Rate: regular rate Rhythm: regular rhythm GI: Inspection: non-distended GI Palp: Yes Soft to palpation Skin: General skin exam: normal color Neuro: General: gait normal Speech: normal speech Extrem: General: normal to inspection Psych: Mental Status: mental status grossly normal Assessment and Plan Assessment and plan (1) Dysphagia: Code(s): R13.10 - Dysphagia, unspecified Status: Acute Assessment and Plan: egd
--- NOTE | 2023-08-22 08:15 | SUR.OPER ---
EGD START 757, END 801 COLONOSCOPY START 806, END 814
[2023-08-22 08:19] VITALS: BP 75/40; PULSE 78; RESP 23; O2SAT 98
[2023-08-22 08:29] VITALS: BP 83/54; PULSE 79; RESP 24; O2SAT 98
[2023-08-22 08:39] VITALS: BP 113/70; PULSE 74; RESP 26; O2SAT 100
== END 2023-08-22 08:49 | disposition home or self-care (01) ==
PROVIDERS: PCP Family Medicine; Visit Provider Internal Medicine Gastroenterology
PROC: 0DJ08ZZ Inspection of Upper Intestinal Tract, Via Natural or Artificial Opening Endoscopic (ICD-10-PCS; CPT 43235; principal; 2023-08-22 08:00)
DX: Z12.11 Encounter for screening for malignant neoplasm of colon (principal); K64.8 Other hemorrhoids; K57.30 Diverticulosis of large intestine without perforation or abscess without bleeding; K21.00 Gastro-esophageal reflux disease with esophagitis, without bleeding; K29.50 Unspecified chronic gastritis without bleeding; E78.5 Hyperlipidemia, unspecified; G47.33 Obstructive sleep apnea (adult) (pediatric); Z99.89 Dependence on other enabling machines and devices; Z79.01 Long term (current) use of anticoagulants; Z98.890 Other specified postprocedural states; Z86.010 Personal history of colon polyps; Z86.73 Personal history of transient ischemic attack (TIA), and cerebral infarction without residual deficits
CPT/HCPCS: 43239; G0105; 88305; J2704; J7120

== ENCOUNTER 2023-08-29 09:38 | Outpatient (CLI) | payer MEDICARE, SELFPAY ==
--- NOTE | ~2023-08-29 | CT_ITS ---
Clinical Indication: Mediastinal mass CT Scan of the Chest with Contrast: Technique: Contiguous sections were acquired throughout the chest after intravenous administration of 75 cc of Omnipaque 350. Dose reduction technique was used on this scan by utilizing automated exposu re control and iterative reconstruction technique. The dose-length product (DLP) was 368.53 mGy-cm. Findings: There is no evidence of any significant mediastinal, hilar or axillary lymphadenopathy. There is no f illing defect in the pulmonary arterial tree to suggest pulmonary embolus. There is no evidence of ao rtic dissection or aneurysm. There is no evidence of pleural or pericardial effusion. There is a 4.5 x 3.1 x 4.1 cm ovoid homogene ous circumscribed mass in the right paravertebral region, possibly involving the pleura, at the T11 l evel (axial image 102 for example). The lungs are clear. No pulmonary nodules or infiltrates are noted. Images through the upper abdomen reveal no abnormalities. Impression: 4.5 x 3.1 x 4.1 cm circumscribed homogeneous ovoid mass in the left paravertebral region at T11. This is essentially unchanged as compared to prior MR dated 08/13/2022, and by report, probably without si gnificant change since 03/02/2012. This is compatible with a benign lesion. Reviewed, dictated and finalized at location . Impression: 4.5 x 3.1 x 4.1 cm circumscribed homogeneous ovoid mass in the left paravertebr al region at T11. This is essentially unchanged as compared to prior MR dated , and by report, probably without significant change since 03/02/2012. T his is compatible with a benign lesion.
[2023-08-29 09:59] LABS: Estimated Glomerular Filt Rate > 60
== END 2023-08-29 09:39 | disposition home or self-care (01) ==
PROVIDERS: PCP Family Medicine; Visit Provider Physician Assistant Medical
DX: J98.59 Other diseases of mediastinum, not elsewhere classified (principal); K76.89 Other specified diseases of liver
CPT/HCPCS: 71260; Q9967

== ENCOUNTER 2024-12-29 11:50 | Emergency (ER) | payer MEDICARE, SELFPAY ==
[2024-12-29 11:55] VITALS: BP 158/90; PULSE 74; RESP 19; TEMP 36.6; O2SAT 98
[2024-12-29 12:13] LABS: Hematocrit 47.7 % (42.0-52.0); Hemoglobin 15.5 g/dL (14.0-18.0); Immature Granulocyte Percent A 0.3 % (0-0.5); Lymphocytes Absolute Auto 1.94 K/mm3 (0.9-3.2); Mean Corpuscular HGB Conc 32.5 g/dl (32-36); Mean Corpuscular Hemoglobin 28.8 pg (26-34); Mean Corpuscular Volume 88.7 fl (80-100); Nucleated Red Blood Cells Absolute Auto 0.000 K/mm3 (0.0-0.012); Nucleated Red Blood Cells Perc 0.0 % (0.0-0.2); Platelet Count Result 149 k/mm3 (150-375); Red Blood Count 5.38 M/mm3 (4.6-6.20); White Blood Count 8.0 K/mm3 (4.5-10.0)
--- OUTSIDE RECORDS SUMMARY | 2024-12-29 12:16 | XMS_ITS | Clinical Summary ---
Author Organization [facility] Address [facility] [place] [address] Care Team Providers Care Chief Wellness Officer Name Role Phone Leticia Michel MD Primary Care Provider [phone] Allergies Active Allergy Reactions Criticality Noted Date Comments Azithromycin Unknown Medium 01/20/2020 GI issues Medications multivit-mins/iro n/folic/lycop (CENTRUM MEN ORAL) Take 1 tablet by mouth daily Active atorvastatin (LIPITOR) 20 mg tablet Take 1 tablet (20 mg total) by mouth daily 0 Active valACYclovir (VALTREX) 1 gram tablet Take 1 tablet (1,000 mg total) by mouth daily as needed 2 Active sildenafiL (VIAGRA) 25 mg tablet Take 1 tablet (25 mg total) by mouth as needed 3 Active inulin (PREBIOTIC FIBER ORAL) Take by mouth Active red yeast rice 600 mg tablet Take by mouth Active Xarelto 20 mg tablet TAKE 1 TABLET BY MOUTH DAILY 100 tablet 2 5 Active psyllium 0.52 gram capsule Take 1 capsule (0.52 g total) by mouth daily Active sotaloL (BETAPACE) 80 mg tabletIndications :Paroxysmal atrial fibrillation (HCC) TAKE 1 TABLET BY MOUTH TWICE DAILY 200 tablet 5 Active Active Problems Problem Noted Date Diagnosed Date Encounter for monitoring sotalol therapy 022 Coronary artery disease invo lving [place] coronary artery of [place] heart without angina pectoris 05/02/2020 Cardiomyopathy 02/28/2020 LEANN (obstructive sleep apnea) 01/20/2020 Hyperlipidemia LDL goal <100 01/20/2020 Chronic anticoagulation 01/20/2020 Atrial fibrillation 01/20/2020 Lung mass 09/17/2012 Standard chest x-ray abnormal 03/19/2012 Encounters Date Type Department Care Team Description 10/27/2024 10:30 AM CDT Office Visit [facility] [address] [facility] [address] [place] [id number] Skinny Amado MD Hypersomnia with sleep apnea (Primary Dx); LEANN (obstructive sleep apnea); Overweight (BMI 25.0-29.9) from Last 3 Months Immunizations Immunization Administration Dates Next Due Pfizer SARS-CoV-2 Monovalent Vaccination (12+ Yrs) PURPLE 06/12/2020,05/22/2020 Surgical History Surgery Date Site/Laterality Comments KNEE SURGERY Medical History Medical History Date Comments Atrial fibrillation (HCC) Stroke (HCC) Heart disease AFIB Family History Medical History Relation Name Comments Emphysema Father Alzheimer's disease Mother Ashlyn Juarez Heart disease Sister Lisa Vazquez Relation Name Status Comments Father Mother Ashlyn Juarez Sister Lisa Vazquez Social History Tobacco Use Types Packs/Day Years Used Date Smoking Tobacco: Former Cigarettes 0.1 2 0 1971 - 1973 Smokeless Tobacco: Never Tobacco Cessation:Counseling Given: Not Answered Alcohol Use Standard Drinks/Week Comments Yes 0 (1 standard drink = 0.6 oz pur e alcohol) rarely Sex and Gender Information Value Date Recorded Sex Assigned at Not on file Legal Sex Male 9:25 AM DATABASE ADMINISTRATION ASSOCIATE Gender Identity Male 02/12/2021 10:46 AM DATABASE ADMINISTRATION ASSOCIATE Sexual Orientation Straight 02/12/2021 10 :46 AM DATABASE ADMINISTRATION ASSOCIATE Obstetrics History Last Filed Vital Signs Vital Sign Reading Time Taken Comments Blood Pressure 131/76 10/27/2024 10:07 AM CDT Pulse 61 10/27/2024 10:07 AM CDT Temperature 36.3 C (97.4 F) 04/13/2020 4:19 PM DATABASE ADMINISTRATION ASSOCIATE Respiratory Rate 18 10/27/2024 10:07 AM CDT Oxygen Saturation 95% 10/27/2024 10:07 AM CDT Inhaled Oxygen Concentration - - Weight 92.1 kg (203 lb) 10/27/2024 10:07 AM CDT Height 177.8 cm (5' 10) 10/27/2024 10:07 AM CDT Body Mass Index 29.13 10/27/2024 10:07 AM CDT Plan of Treatment Health Maintenance Due Date Last Done Comments Colon Cancer Screening-Colonoscopy 1954 Depression Screening 1954 Hepatitis C Screening 1954 Hepatitis B Screening 1972 Zoster Vaccine (1 of 2) 2004 Abdominal Aortic Aneurysm (A AA) Screen 2019 Well Visit 65+ 2019 Pneumococcal vaccine 65+ (2 of 2 - PCV20 or PCV21) 02/08/2022 02/08/2021 Fall Risk Assessment 07/19/2022 07/19/2021, 01/11/2021, 05/02/2020, Additional history exists DTaP/Tdap/Td Vaccine (2 - Td or Tdap) 05/06/2024 05/06/2014 Covid-19 Vaccine (4 - 2024-2 6 season) 2024 01/30/2021, 06/12/2020, 05/22/2020 Influenza Vaccine (#1) 2024 , 01/05/2019, 12/29/2016, Additional history exists Insurance [employer] [place] [employer] MEDIC[place]VANTAGE [facility] MEDICARE ADVANTAGE Care Teams Chief Wellness Officer Relationship Specialty Start Date End Date Leticia Michel MD PCP - General Family Medicine 01/11/21
--- OUTSIDE RECORDS SUMMARY | 2024-12-29 12:16 | XMS_ITS | Clinical Summary ---
Author Organization [employer] [facility] Address [address] [place] [address] Care Team Providers Care Plate Worker Name Role Phone Unavailable Primary Care Provider Unavailabl e Social History Tobacco Use Types Packs/Day Years Used Date Smoking Tobacco: Never Assessed Sex and Gender Information Value Date Recorded Sex Assigned at Not on file Legal Sex Male 10:09 PM CDT Gender Identity Not on file Sexual Orientation Not on file Plan of Treatment Health Maintenance Due Date Last Done Comments DTAP/TDAP/TD VACCINES (1 - Tdap) 1973 FIT-DNA Q 3 years 1999 FIT/FOBT Q 1 year 1999 Flex Sig/CT Colonography Q 5 years 1999 PNEUMOCOCCAL VACCINE 50+ YEARS (1 of 1 - PCV) 04/17/19 05 ZOSTER VACCINE (1 of 2) 2004 INFLUENZA VACCINE (#1) 2024 COLORECTAL SCREENING 11/06/2028 11/06/2018 Colorectal Cancer Screening 11/06/2028 RSV VACCINE (60+ or ) (1 - 1-dose 75+ series) 2029
--- OUTSIDE RECORDS SUMMARY | 2024-12-29 12:16 | XMS_ITS | Clinical Summary ---
Author Organization [facility] Address [address] [place] [address] Phone Care Team Providers Care Rfid Manager Name Role Phone Colleen Martell MD Primary Care Provi maría Allergies Active Allergy Reactions Criticality Noted Date Comments Azithromycin Other (see Comments) 11/06/2018 GI PROBLEMS Cephalexin Other (see Comments) Medium 10/14/2018 Gi problems Medications Multiple Vitamins-Mineral s (CENTRUM SILVER PO) Take 1 Tab by mouth daily. Active MAGNESIUM PO Take 1 Tab by mouth daily. Active aspirin EC 81 MG Tablet Delayed Response Take 81 mg by mouth daily. Active atorvastatin (LIPITOR) 20 MG Tablet Take 20 mg by mouth daily. Active Family History Medical History Relation Name Comments Chronic Obstructive Pulmonary Disease Father Cerebral Anuerysm Mother Relation Name Status Comments Father Mother Social History Tobacco Use Types Packs/Day Years Used Date Smoking Tobacco: Former Cigarettes 3 4 0 10/14/1964 - 10/14/1968 Smokeless Tobacco: Never Alcohol Use Standard Drinks/Week Comments Yes 2 (1 standard drink = 0.6 oz pur e alcohol) Sex and Gender Information Value Date Recorded Sex Assigned at Not on file Legal Sex Male 11:32 AM CDT Gender Identity Not on file Sexual Orientation Not on file Occupation Industry Job Start Date Job End Date [employer] Not on file Not on file Not on file Last Filed Vital Signs Vital Sign Reading Time Taken Comments Blood Pressure 123/90 11/06/2018 8:25 AM CDT Pulse 67 11/06/2018 8:25 AM CDT Temperature 36 C (96.8 F) 11/06/2018 8:25 AM CDT Respiratory Rate 18 11/06/2018 8:25 AM CDT Oxygen Saturation 97% 11/06/2018 8:25 AM CDT Inhaled Oxygen Concentration - - Weight 92.1 kg (203 lb) 11/06/2018 6:27 AM CDT Height 177.8 cm (5' 10) 11/06/2018 6:27 AM CDT Body Mass Index 29.13 11/06/2018 6:27 AM CDT Plan of Treatment Health Maintenance Due Date Last Done Comments Hepatitis C Virus (HCV) Screening 1955 TdaP Immunization 1954 Cologuard 1999 Immunochemical Fecal Occult Blood 1999 Pneumococcal Immunization (5 0+ years) (1 of 1 - PCV) 2004 Zoster Immunization (1 of 2) 2004 Colonoscopy 11/07/2023 11/06/2018 Colorectal Cancer Screening 11/07/2023 Influenza Immunization (#1) 2024 SARS-COV-2 Immunization ( season) 2024 Respiratory Syncytial Virus (RSV) Immunization (Adult) (1 - 1-dose 75+ series) 2029 Hepatitis B Immunization Aged Out No longer eligible based on patient's age to complete this topic Human Papillomavirus (HPV) Immunization Aged Out No longer eligible b ased on patient's age to complete this topic Meningococcal Immunization (ACWY) Aged Out No longer eligible based on patient's age to complete this topic Rotavirus Immunization Aged Out No lo nger eligible based on patient's age to complete this topic Insurance Care Teams Rfid Manager Relationship Specialty Start Date End Date Colleen Martell MD [address] [place] [id number] PCP - General Family Medicine 09/15/18
[2024-12-29 12:26] LABS: Alanine Aminotransferase 50 U/L (6-50); Albumin Level 4.8 g/dL (3.5-5.1); Alkaline Phosphatase 69 U/L (38-126); Anion Gap 11 mmol/L (4-12); Aspartate Amino Transferase 42 U/L (17-59); Bilirubin,Total 0.8 mg/dL (0.2-1.3); Blood Urea Nitrogen 17 mg/dL (9-20); Calcium 9.3 mg/dL (8.4-10.2); Carbon Dioxide 25 mmol/L (22-30); Chloride 105 mmol/L (98-107); Estimated CRCL calculation 65 ml/min; Estimated Glomerular Filt Rate > 60; Glucose 113 mg/dL (65-110); Potassium 4.5 mmol/L (3.4-5.0); Sodium 141 mmol/L (137-145); Total Protein 8.1 g/dL (6.3-8.2)
[2024-12-29 12:27] LABS: INR 1.6; Prothrombin Time 18.4 Seconds (11.1-14.7)
[2024-12-29 12:28] LABS: Partial Thromboplastin Time 36.6 Seconds (22.3-36.8)
--- NOTE | 2024-12-29 12:49 | ED.GENADULT ---
HPI - General Adult General Chief complaint: GI Bleed Stated complaint: Rectal bleeding x 4 days Time Seen by Provider: 12/29/24 11:55 History of Present Illness HPI narrative: This is a 69-year-old male history of hemorrhoids on Xarelto for atrial fibrillation presenting for rectal bleeding. Patient has been having intermittent hemorrhoids with bleeding for the last 4 months. Typically comes and goes over last 4 days has gotten worse. He has started wearing a female menstrual pad in his underwear which unfortunately has not controlled the bleeding adequately and he has stained his sheets several nights in a row. Otherwise he feels well with no symptoms of anemia such as lightheadedness dizziness chest pain shortness of breath. He does not have any abdominal pain nausea vomiting or diarrhea. Last colonoscopy was approximately 1 year ago when he had a polyp removed. GI doctor is Dr. Stallworth. Related Data Home Medications ?Medication ?Instructions ?Recorded ?Confirmed ?Last Taken ?Type Adults Multivitamin 1 tab-cap PO DAILY 01/28/20 12/22/24 08/21/23 History Lactobacillus acidophilus 2 mmu cells PO DAILY 08/18/23 12/22/24 08/21/23 History Allergies Allergy/AdvReac Type Severity Reaction Status Date / Time azithromycin AdvReac Severe BAD GI Verified 12/29/24 12:01 TRACT REACTION THAT HAD EFFECTS FOR 6 MONTHS [facility] Past Medical History Medical History (Updated 12/29/24 @ 16:29 by Gabriel Culp MD) Atypical pigmented skin lesion Colon polyp Dysphagia LEANN (obstructive sleep apnea) cpap Kidney stone Mediastinal mass MRI July 2022, likely benign, patient declined CT surgery referral Liver cyst MRI abdomen, 2022, benign History of TIA (transient ischemic attack) New onset atrial fibrillation BMI 30.0-30.9,adult Hyperlipidemia Surgical History Surgical History History of right knee surgery removal of nail Family History Family History Mother Alzheimer disease Mother Family history of Alzheimer's disease Social History Social History Smoking status: Never smoker Second hand tobacco smoke exposure: No Smoking end date: 03/31/76 Alcohol intake: current Drinks per week: 2 Alcohol use details: DRINKS/WINE/BEER Substance use: never Substance use type: does not use Lack of Transportation: No Lack of Food: Never True Current Housing: I Have Housing Concerned About Future Housing: No Difficulty Paying Gas/Electric Bills: No Difficulty Paying for Meds: No Currently Unemployed: No Education: Master's Degree or Higher Difficulty w/ Childcare or Family Care: No Living arrangements: with family Gender identity (if verbalized by the patient): Male Sexual Orientation (if Verbalized by the Patient): Straight or Heterosexual Spiritual care concerns: No Agree to blood products: Yes Exam Narrative: APPEARANCE: No apparent distress. Head: atraumatic. EYES: EOMI, NOSE: Atraumatic NECK: Trachea midline RESPIRATORY: No increased rate of breathing CTAB CARDIOVASCULAR: RRR, no peripheral edema ABDOMINAL: Non-distended soft nontender Rectal exam: Visible external hemorrhoid, red blood around the rectum MUSCULOSKELETAl: No obvious deformities NEURO: Alert. Moving 4/4 extremities SKIN:: Warm, dry. Normal color PSYCHIATRIC: Normal affect Course Vital Signs Vital signs: Vital Signs Temperature 97.8 F 12/29/24 11:55 Pulse Rate 74 12/29/24 11:55 Respiratory Rate 19 12/29/24 11:55 Blood Pressure 158/90 H 12/29/24 11:55 Pulse Oximetry 98 12/29/24 11:55 Oxygen Delivery Room Air 12/29/24 11:55 Temperature 97.8 F 12/29/24 11:55 Pulse Rate 60 12/29/24 15:20 Respiratory Rate 18 12/29/24 15:20 Blood Pressure 143/85 H 12/29/24 15:20 Pulse Oximetry 100 12/29/24 15:20 Oxygen Delivery Room Air 12/29/24 11:55 Medical Decision Making [facility] Narrative Medical decision making narrative: -Course: 69-year-old male presenting with rectal bleeding x4 days. Digital rectal exam showed a external hemorrhoid and red blood around the rectum. Initial hemoglobin is 15.5. Repeat after 4 hours and 1 L of LR was 13.5 which is felt to mostly dilutional. Regardless patient been bleeding for 4 days and still has a very elevated hemoglobin. Hemorrhoid bleeding is likely to be self-limited. 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 Barnes to see if we could hold his Xarelto for several days until the bleeding is controlled. -DDX includes but is not limited to: Hemorrhoids, diverticular bleed, rectal fissure, neoplasm -Co-morbidities complicating care: AFib on Xarelto Vital Signs Vital Signs: Vital Signs Temperature 97.8 F 12/29/24 11:55 Pulse Rate 74 12/29/24 11:55 Respiratory Rate 19 12/29/24 11:55 Blood Pressure 158/90 H 12/29/24 11:55 Pulse Oximetry 98 12/29/24 11:55 Oxygen Delivery Room Air 12/29/24 11:55 Temperature 97.8 F 12/29/24 11:55 Pulse Rate 60 12/29/24 15:20 Respiratory Rate 18 12/29/24 15:20 Blood Pressure 143/85 H 12/29/24 15:20 Pulse Oximetry 100 12/29/24 15:20 Oxygen Delivery Room Air 12/29/24 11:55 Lab Data 12/29/24 16:02 12/29/24 12:06 Labs: Lab Results 12/29/24 12/29/24 Range/Units 12:06 16:02 WBC 8.0 (4.5-10.0) K/mm3 RBC 5.38 (4.6-6.20) M/mm3 Hgb 15.5 13.5 L (14.0-18.0) g/dL Hct 47.7 41.9 L (42.0-52.0) % MCV 88.7 (80-100) fl MCH 28.8 (26-34) pg MCHC 32.5 (32-36) g/dl RDW 13.7 (11.5-14.5) % Plt Count 149 L (150-375) k/mm3 MPV 10.0 (7.4-10.4) fl Immature Gran % (Auto) 0.3 (0-0.5) % Neut % (Auto) 62.0 (45.5-73.1) % Lymph % (Auto) 24.3 (18.3-44.2) % [place] % (Auto) 10.9 H (2.6-8.5) % Eos % (Auto) 1.6 (0-4.4) % Baso % (Auto) 0.9 (0.2-1.2) % Lymph # (Auto) 1.94 (0.9-3.2) K/mm3 [place] # (Auto) 0.9 H (0.1-0.6) K/mm3 Eos # (Auto) 0.1 (0-0.3) K/mm3 Baso # (Auto) 0.1 (0.0-0.1) K/mm3 Abs Immat Gran (auto) 0.02 (0.00-0.031) K/mm3 Absolute Neuts (auto) 5.0 (1.3-6.7) K/mm3 Absolute Nucleated RBC 0.000 (0.0-0.012) K/mm3 Nucleated RBC % 0.0 (0.0-0.2) % PT 18.4 H (11.1-14.7) Seconds INR 1.6 APTT 36.6 (22.3-36.8) Seconds Sodium 141 (137-145) mmol/L Potassium 4.5 (3.4-5.0) mmol/L Chloride 105 (98-107) mmol/L Carbon Dioxide 25 (22-30) mmol/L Anion Gap 11 (4-12) mmol/L BUN 17 (9-20) mg/dL Creatinine 0.97 (0.7-1.3) mg/dL Estim Creat Clear Calc 65 ml/min Estimated GFR > 60 (59 - ) Glucose 113 H (65-110) mg/dL Calcium 9.3 (8.4-10.2) mg/dL Total Bilirubin 0.8 (0.2-1.3) mg/dL AST 42 (17-59) U/L ALT 50 (6-50) U/L Alkaline Phosphatase 69 (38-126) U/L Total Protein 8.1 (6.3-8.2) g/dL Albumin 4.8 (3.5-5.1) g/dL Blood Type O Positive Antibody Screen Negative Discharge Plan Discharge Clinical Impression: Bleeding hemorrhoid, Chronic anticoagulation Patient Disposition: Home Condition: Stable Instructions: Antibiotic Form, Hemorrhoids (ED) Additional Instructions: You were seen in the emergency department for hemorrhoids. Please hold your Xarelto for 48 hrs as that is contributing to your bleeding for 48. If your bleeding stops please call your sack sewer machine to resume your Xarelto. If you develop severe rectal bleeding, weakness fatigue chest pain difficulty breathing or feel like he may faint please return to the ER for re-evaluation. Patient Language: Upper Sorbian Prescriptions: No Action sotalol 80 mg Tablet 80 mg PO Q12HR Qty: 60 11RF Acidophilus Tablet 2 mmu cells PO DAILY omeprazole 20 mg capsule,delayed release(DR/EC) 20 mg PO .daily Qty: 30 2RF Adults Multivitamin 1 tab-cap PO DAILY valacyclovir [Valtrex] 1 gram tablet 1,000 mg PO Q12H PRN (Reason: cold sores) Qty: 60 3RF Rx Instructions: Take 1 tablet PO BID for 3-5 days prn cold sores Xarelto 20 mg tablet See Rx Instructions .ROUTE .COMPLEX Qty: 30 0RF Dose Instruction: TAKE 1 TAB BY MOUTH DAILY WITH EVENING MEAL Rx Instructions: TAKE 1 TAB BY MOUTH DAILY WITH EVENING MEAL atorvastatin 20 mg tablet 20 mg PO DAILY Qty: 100 3RF sildenafil 25 mg tablet 25 mg PO DAILY PRN (Reason: sexual activity) Qty: 7 7RF Rx Instructions: administer 30 minutes to 4 hours before activity Follow-up/Referrals: Leticia Michel MD [Primary Care Provider, Family Practice] Ellis Barnes MD [Physician, Cardiology] - 3 Days Referral Note: Bleeding hemorrhoids on Xarelto Pk Sotomayor MD [Physician, Gastroenterology] - 3 Days Referral Note: Bleeding hemorrhoids
[2024-12-29 13:45] VITALS: BP 144/73; PULSE 68; RESP 16; O2SAT 99
[2024-12-29] MEDS: LACTATED RINGERS 1,000 ML 999 ML IV CONT (13:45)
[2024-12-29 14:57] VITALS: BP 143/85; PULSE 67; RESP 15; O2SAT 100
[2024-12-29 15:20] VITALS: BP 143/85; PULSE 60; RESP 18; O2SAT 100
--- NOTE | 2024-12-29 15:20 | PC.NURSE ---
Report given to Pat CHENG, all questions answered
[2024-12-29 16:10] LABS: Hematocrit 41.9 % (42.0-52.0); Hemoglobin 13.5 g/dL (14.0-18.0)
[2024-12-29 16:45] VITALS: BP 151/90; PULSE 64; RESP 16; TEMP 36.6; O2SAT 100
== END 2024-12-29 16:55 | disposition home or self-care (01) ==
PROVIDERS: Emergency Provider Emergency Medicine; PCP Family Medicine
DX: K64.4 Residual hemorrhoidal skin tags (principal); I48.91 Unspecified atrial fibrillation; E78.5 Hyperlipidemia, unspecified; G47.33 Obstructive sleep apnea (adult) (pediatric); Z87.442 Personal history of urinary calculi; Z86.0100 Personal history of colon polyps, unspecified; Z86.73 Personal history of transient ischemic attack (TIA), and cerebral infarction without residual deficits; Z87.891 Personal history of nicotine dependence; Z79.01 Long term (current) use of anticoagulants
CPT/HCPCS: 36415; 80053; 85014; 85018; 85025; 85610; 85730; 86850; 86900; 86901; 96360; 99283; J7120

== ENCOUNTER 2025-02-23 01:22 | Day surgery (SDC) | payer MEDICARE, SELFPAY ==
[2025-02-22 10:03] VITALS: BMI 28.8
[2025-02-23] VITALS (7 sets, daily range): BP systolic 105–136; BP diastolic 66–95; PULSE 53–66; RESP 12–17; TEMP 36.4; O2SAT 97–99
--- OUTSIDE RECORDS SUMMARY | 2025-02-23 01:24 | XMS_ITS | Data Portability ---
Author Organization [facility], Main Office Address [address] [place] [address] [address] [place] [address] Care Team Providers Care Human Resource Consultant Name Role Phone UCHE CRAFT Primary Care Provider [phone] Assessment No assessment recorded. Plan of Treatment Reminders Order Date Submit Date Provider Last Modified By Organization Details Last Modified Time Details Appointments FOLLOW UP 60 2025 12:00P M Lida Sandoval MD Not available Not available Not available Lab None recorded . Referral None recorded . Procedures None recorded . Surgeries None recorded . Imaging None recorded . Medication Orders None recorded . Patient TargetsNo targets recorded. Patient Instructions Encounter Date Encounter Id Patient Instructions Last Modified By Organization Details Last Modified Time 01/18/2025 [id number] He will f/u in early/mid-March and we will start his IRC series with treating his RP internal hemorrhoid. We will then wait 3 weeks and treat his LL. We will wait another 3 weeks and treat his RA. I d/w them that he will be a total of 5 - 6 treatments depending on how he does. On today's visit I spent a total of 55 minutes prepping for his visit (reviewing shared records), [id number] with them answering their many questions and documenting. Not available 01/18/2025 18:20:41 Reason for Referral None Reported. Problems Name Problem SNOMED Code Status Onset Date Resolution Date Notes Provider Name and Address Organization Details Recorded Time History of transient ischemic attack 473416866 Active 2024 Lida Sandoval MD [address], [place], [address], [facility] 18:17:57 Mixed hyperlipidem ia 030944220 Active 2024 Lida Sandoval MD [address] [place] [address],[address] [place] [address], [facility] 18:17:58 Paroxysmal atrial fibrillation 958459752 Active 2024 Lida Sandoval MD [address] [place] [address],[place] [address], [facility] 18:18:01 History of polyp of colon 719956179 Active 2024 Lida Sandoval MD [address] [place] [address],[address] [place] [address] 5, [facility] 18:18:03 Chronic idiopathic constipation 55772285 Active 2024 Lida Sandoval MD [address] [place] [address],[address] [address], [facility] 18:18:06 External hemorrhoids 91660862 Active 2024 Lida Sandoval MD [address] [place] [address],[address] [address], [facility] 18:18:08 Internal hemorrhoids grade II 397793572 Active 202401/18/25 : No tx - [place] Tx #1: 04/13/25 Lida Sandoval MD [address] [place] [address],[address] [place] [address], [facility] 18:19:18 Problem Notes None recorded. Procedures Surgical History Date Name Laterality Status Provider Name and Address Organization Details Recorded Time Anoscopy completed Lida Sandoval MD [address] [place] [address],[address], [place] [address], [facility] 01/18/2025 18:05:59 4 Colonoscopy completed Lida Snadoval MD [address] [place] [address],[address], [place], [address] [place] [address] [facility] 01/18/2025 17:59:44 Imaging Results None recorded. Procedure Notes None recorded. Medical Equipment None Reported. Allergies Allergen ID Allergen Name Allergen Category Reaction Reaction Severity Criticality Documentation Date Start Date Code Code System Note Provider Name and Address Organization Details Recorded Time 65242 azithromy shirley medicatio n other Not available Not available 01/16/20252018 57857 RxNorm GI PROBL EMS Not Available [employer] [facility] [employer] 10:02:28 58268 cephalexi n medicatio n other Not available [facility] 01/16/20252018 2231 RxNorm Gi probl ems Not Available [employer] 10:02:28 Medications Name Sig Start Date Stop Date Status Note LastModified by Organization Details LastModified Time atorvastatin 20 mg tablet Take 1 tablet every day by oral route. active Not Available Not Available No t Available aspirin 325 mg tablet Take 1 tablet every day by oral route. active : He only takes this when he goes off of his Xarelt o. Not Available Not Available Not Available sotalol 80 mg tablet Take 1 tablet twice a day by oral route. active Not Available Not Available No t Available Acidophilus active Not Available Not A vailable Not Available Centrum Silver active Not Available No t Available Not Available Xarelto 20 mg tablet Take 1 tablet every day by oral route. active Not Available Not Available No t Available Vitals None Recorded Social History Question Answer Notes LastModified by Organizat ion Details LastModified Time Tobacco Smoking Status Former Smoker Quit many years ago Lida Sandoval MD [address] [place] [address],[address], [place], [address], [facility] 01/18/2025 17:58:48 Do You Have An Advance Directive? Yes Information not available 01/18/2025 Alcohol Use Yes Information n ot available 01/18/2025 Alcohol Amount Occasional Information not available 01/18/2025 Caffeine Use Yes Information not available 01/18/2025 Caffeine Amount 14 Oz Coffee Daily Information not available 01/18/2025 Illicit Drug Use No Information not available 01/18/2025 What Was The Date Of Your Most Recent Tobacco Screening? 01/18/2025 Information not available 01/18/2025 How Much Tobacco Do You Smoke? 1 PPD Information not available 01/18/2025 How Many Years Have You Smoked Tobacco? 3 Information not available 01/18/2025 Sex: Male Functional Status Question Answer Note LastModified by Organization D etails LastModified Time Do you or have you ever used any other forms of tobacco or nicotine? No Information not available 01/18/2025 Mental Status None recorded. Family History Relationship Description Onset Age of this Age Resolved Age Notes LastModified by Organization Details LastModified Time Father Malignant neoplasm of prostate 60 Not available 2024 17:58:12 Mother Alzheimer's disease Not available 2024 18:00:49 Medical History Condition Response Coronary Artery Disease N Other N Atrial Fibrillation Y Kidney Stones Y Hyperthyroidism N Hernia N Depression N COPD N Hypothyroidism N Glaucoma N Accidental Bowel Leakage N Headaches/Migraines N Deep Vein Thrombosis N Cardiac Dysrhythmia N Anxiety Disorder N MRSA/VRE Exposure N Genital Herpes N Diverticulosis Y Cancer N Stroke Y Head Trauma Y Crohn's Disease N Genital Warts N Liver Disease/Hepatitis N HIV/AIDS N High Cholesterol Y Irritable Bowel Syndrome N Kidney Disease N Autoimmune Disease N Anemia N Celiac Disease N Arthritis/Gout Y Anal/Rectal Trauma/Injury N Diabetes N Cataracts Y Bleeding Disorder N Seizures/Epilepsy N Congestive Heart Failure (CHF) N Diverticulitis N Heart Attack N Asthma N Reflux/GERD N Ulcerative Colitis N Sleep Apnea Y Mitral Valve Prolapse N Aneurysm N Heart Disease N Pulmonary Embolism N Hypertension N Colon/Rectal Polyps Y Past Encounters Encounter ID Performer Location Encounter Start Date Encounter Closed Date Diagnosis/Indication Diagnosis SNOMED-CT Code Diagnosis ICD10 Code Diagnosis IMO Codes Diagnosis Note [id number] Lida Sandoval MD Main Office [address] [address] 01/18/2025 12:04:22 01/18/2025 13:22:22 Internal hemorrhoids grade II [id number] K64.1 3720690 Stage 2 - 3 internal hemorrhoid s: I discussed hemorrhoid s in general with him and his as well as the treatment options. He now understand s that any non-surgic al procedure (infrared coagulatio n or banding) would be done on his internal hemorrhoid s. I do think he would benefit from IRC. I gave him full informed consent including risks, benefits and alternativ es (I will need to more fully detail potential side effects before treating him). All questions were answered. He does want to have treatment, however they are going to be out of town a lot in the next few month (and specifical ly a month long trip to [facility] starting in early February). This does not leave enough time to get into his treatment series before going out of the country (and I am going to have to space his treatment out given that he is on Xarelto). We decided to wait until the first of 2025 before starting his series. I d/w them that being on the Xarelto does increase the (already very low) risk of having bleeding from the treatment. I want him to stay on it throughout his series however because he does have the paroxysmal a. fib. and did have a TIA from this in 2019. External hemorrhoids 239 96595 K64.4 81595 These will improve with IRC. He understand s the only way to directly treat external hemorrhoid s/skin tags would be with a surgical excision. He does not wish to pursue this and his hemorrhoid s are not bad enough to warrant surgery. He should continue using his bidet at home and the moist wipes when he is not at home. Chronic id iopathic constipation 81400636 K59.04 8835 This is not bad. He of course needs to consistent ly eat a high fiber diet and drink plenty of water. I advised he should start a low dose of docusate (start with 100 mg daily) and very slowly increase. I d/w him he is shooting for daily BM's that are consistent ly soft (Finley Scale type 4) and easy to pass. He should take it daily and forever once he figures out what dose works for him. He can also continue his acidophilu s. History of polyp of colon 602662326 Z86.0100 3567497 He evidently did have polyps on at least a couple of his scopes. His last scope was on 08/22/23 and was negative. He is due for a repeat at 5 years. Paroxysmal atrial fibrillation 046715927 I48.0 51107 He evidently has been in sinus rhythm since his last cardiovers ion and with the sotalol. He is taking the xarelto daily. His cardiologi st is OK with him taking a full 325 mg aspirin for short amounts of time if he does have heavy bleeding. I advised he needs to take the aspirin with him when he goes on his trips just in case he does have bleeding. Mixed hyperlipidemia 267 356731 E78.2 61153 He takes the atorvastat in and follows routinely with his PCP. History of transient ischemic attack 436471914 Z86.73 [id number] This was in 2019 and was probably due to his a. fib. He is on the Xarelto as above. Health Concerns Section Related Observation LastModified by Organization Detai ls LastModified Time None Recorded Concern Status LastModified by Organization Details LastModified Time None Recorded Advance Directives Directive Y: Payers Insurance Date Sequence Insurance Name Policy Number Policy Fletcher Covered Member ID Fletcher Member ID Guarantor Name 01/18/2025 1 [facility] (MEDICARE REPLACEMENT/A DVANTAGE - PPO) [id number] Jimmy Juarez [id number] Jimmy Juarez 01/18/2025 1 MEDICARE [place]: [place] Jimmy Juarez [id number] Jimmy Juarez Notes Date Note Type Note Provider Name and Address Organization Details Recorded Time 01/18/2025 text/html ROS as noted in the HPI This is a very pleasant 69 year old man who has had symptoms from his hemorrhoids on and off for just over a year. His only symptom is bleeding. Bleeding: He has had some episodes of very heavy bleeding with BM's and wiping. His most recent episode was from 12/24-12/29. This was so heavy that he presented to an ER. Evidently his H&H were stable, even after fluids were given. He was sent home without treatment. He does take chronic xarelto for paroxysmal a. fib. He went of of it after going to the ER (he bridged with a 325 mg ASA daily). He has been back on the xarelto for 1 week and has had no bleeding. Pain: None Itching: None Discharge: It is always hard to get clean after BM's because of swelling and irritation. He has a bidet at home and always takes baby wipes with him when he travels. He does not have to re-wipe after BM's due to drainage. He has had some episodes of spontaneous leakage of only blood and wears a light pad during these times. His also recalls an episode a few months ago when he had leakage of a heavy amount of BRB in the middle of the night. Prolapse: Not that he feels or has to manually reduce. External swelling: He has only minor external swelling with BM's. Discomfort: He has minimal external irritation after BM's. He has occasional internal symptoms of pressure, a sense of being blocked when trying to have a BM and a sense of incomplete emptying after BM's. Previous Hemorrhoid Treatment: He has never used OTC hemorrhoid products, gotten a prescription for or hemorrhoids or had a procedure on them. Previous Lower GI Endoscopy: He states he has had a total of 4 c-scopes. His last scope was on 08/22/23 and was negative (he states he has had polyps on previous scopes). He is due for a repeat at 5 years. Dates found in c-scope report. Bowel Habits: He has had long standing daily BM's but they are not always soft (Finley Scale type 2 - 4). He fairly consistently eats a high fiber diet and drinks plenty of water. He tries to take psyllium but admits he forgets it a lot. Lida Sandoval MD [address], [place], [address], [facility] 01/18/2025 18:26:43
--- OUTSIDE RECORDS SUMMARY | 2025-02-23 01:24 | XMS_ITS | Clinical Summary ---
Author Organization [facility] Address [address] [place] [address] Phone Care Team Providers Care Director Of Operations Home Health Name Role Phone Colleen Martell MD Primary [...] to complete this topic Insurance Care Teams Director Of Operations Home Health Relationship Specialty Start Date End Date Colleen Martell MD [address] [place] [address] PCP - General Family Medicine 09/15/18
--- OUTSIDE RECORDS SUMMARY | 2025-02-23 01:24 | XMS_ITS | Clinical Summary ---
Author Organization [facility] Address [facility] [place] [address] Care Team Providers Care Cathode Ray Tube Assembler Name Role Phone Leticia Michel MD Primary Care Provider [phone] Allergies Active Allergy Reactions Criticality Noted Date [...] (PREBIOTIC FIBER ORAL) Take by mouth Active Xarelto 20 mg tablet TAKE 1 TABLET BY MOUTH DAILY 100 tablet 2 5 Active psyllium 0.52 gram capsule Take 1 capsule (0.52 g total) by mouth daily Active sotaloL (BETAPACE) 80 mg tabletIndications :Paroxysmal atrial fibrillation (HCC) TAKE 1 TABLET BY MOUTH TWICE DAILY 200 tablet 5 Active red yeast rice 600 mg tablet Take by mouth 02/04/20 25 Discontinu ed(Therapy completed) Active Problems Problem Noted Date Diagnosed Date Encounter for monitoring sotalol therapy 022 Coronary artery disease invo lving 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 05/02/2020 Cardiomyopathy 02/28/2020 LEANN (obstructive sleep apnea) 01/20/2020 Hyperlipidemia LDL goal <100 01/20/2020 Chronic anticoagulation 01/20/2020 Atrial fibrillation 01/20/2020 Lung mass 09/17/2012 Standard chest x-ray abnormal 03/19/2012 Encounters Date Type Department Care Team Description 02/03/2025 11:15 AM NETWORK CONTROLLER Office Visit [facility] Medical [facility] Cardiology at [address] [place] [address] Ellis Barnes MD Paroxysmal atrial fibrillation (HCC) (Primary Dx); Hyperlipidemia LDL goal <100; Encounter for monitoring sotalol therapy; LEANN (obstructive sleep apnea); Chronic anticoagulation; Coronary artery disease involving 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 02/03/2025 Telephone [facility] Medical [facility] Cardiology at [address] [address] Ellis Barnes MD 12/30/2024 Telephone [facility] Cardiology [address] [place] [phone] Ellis Barnes MD Xarelto hold; Med Management from Last 3 Months Immunizations Immunization Administration [...] on file Legal Sex Male 9:25 AM NETWORK CONTROLLER Gender Identity Male 02/12/2021 10:46 AM NETWORK CONTROLLER Sexual Orientation Straight 02/12/2021 10 :46 AM NETWORK CONTROLLER Last Filed Vital Signs Vital Sign Reading Time Taken Comments Blood Pressure 128/74 02/03/2025 11:29 AM NETWORK CONTROLLER Pulse 58 02/03/2025 11:29 AM NETWORK CONTROLLER Temperature 36.3 C (97.4 F) 04/13/2020 4:19 PM NETWORK CONTROLLER Respiratory Rate 18 10/27/2024 10:07 AM CDT Oxygen Saturation 97% 02/03/2025 11:29 AM NETWORK CONTROLLER Inhaled Oxygen Concentration - - Weight 92.1 kg (203 lb) 02/03/2025 11:29 AM NETWORK CONTROLLER Height 177.8 cm (5' 10) 02/03/2025 11:29 AM NETWORK CONTROLLER Body Mass Index 29.13 02/03/2025 11:29 AM NETWORK CONTROLLER Plan of Treatment Health Maintenance Due Date Last Done Comments Colon Cancer Screening-Colonoscopy 1954 Depression Screening 1954 Hepatitis C Screening 1954 Hepatitis B Screening 1972 Abdominal Aortic Aneurysm (A AA) Screen 2019 Well Visit 65+ 2019 Pneumococcal vaccine 65+ (2 of 2 - PCV20 or PCV21) 02/08/2022 02/08/2021 Fall Risk Assessment 07/19/2022 07/19/2021, 01/11/2021, 05/02/2020, Additional history exists DTaP/Tdap/Td Vaccine (2 - Td or Tdap) 05/06/2024 05/06/2014 Covid-19 Vaccine (4 - 2024-2 6 season) 2024 01/30/2021, 06/12/2020, 05/22/2020 Influenza Vaccine (#1) 2024 , 12/29/2019, 01/05/2019, Additional history exists Zoster Vaccine Completed 08/14/2022, 06/18/2022 Procedures Procedure Name Priority Date/Time Associated Diagnosis Comments POCT LIPID PANEL Routine 02/03/2025 12:2 4 PM NETWORK CONTROLLER Hyperlipidemia LDL goal <100 ECG 12-LEAD Routine 02/03/2025 11:31 AM NETWORK CONTROLLER Paroxysmal atrial fibrillation (HCC) from Last 3 Months Results * (ABNORMAL) POCT lipid panel (02/03/2025 12:24 PM NETWORK CONTROLLER) Cholesterol, POC 134 <200 MG/DL HDL, POC 34(A) >=40 mg/dL Triglycerides, POC 138 <=149 mg/dL LDL Cholesterol POC 72 <=129 mg/dL Chol/HDL Ratio, POC 3.9 NONE Non-HDL Cholesterol, POC 100 NONE mg/dL Cholesterol Total, POC 134 30 - 199 mg/dL Capillary blood 02/03/2025 1 2:24 PM NETWORK CONTROLLER Ellis Barnes MD POINT OF CARE TEST ORDERA BLES Final Result * ECG 12 lead (02/03/2025 11:31 AM NETWORK CONTROLLER) Ellis Barnes MD ECG ORDERABLES Edited Re sult - Final from Last [address] [facility] UHC MEDICARE ADVANTAGE UHC MEDICARE ADVANTAGE Care Teams Cathode Ray Tube Assembler Relationship Specialty Start Date End Date Leticia Michel MD PCP - General Family Medicine 01/11/21
--- OUTSIDE RECORDS SUMMARY | 2025-02-23 01:24 | XMS_ITS | Clinical Summary ---
Author Organization [employer] [facility]rin [facility] Address [address] [place] [address] Care Team Providers Care Licensed Plumber Name Role Phone Unavailable Primary Care Provider [...]
--- OUTSIDE RECORDS SUMMARY | 2025-02-23 01:24 | XMS_ITS | Continuity of Care Document ---
Author Organization [facility], Main Office Address [address] [place] [phone] Care Team Providers Care Buying Intern Name Role Phone UCHE CRAFT Primary Care Provider [phone] Assessment No assessment recorded. Plan of Treatment [...] By Organization Details Last Modified Time 01/18/2025 [id number] He will f/u in early/mid-March and we [...] prepping for his visit (reviewing shared records), [id number] with them answering their many questions and documenting. Not available 01/18/2025 18:20:41 Reason for Referral None Reported. Problems Name Problem SNOMED Code Status Onset Date Resolution Date Notes Provider Name and Address Organization Details Recorded Time History of transient ischemic attack 174182962 Active 2024 Lida Sandoval MD [address] [facility], [place], [address], [facility] 18:17:57 Mixed hyperlipidem ia 917035492 Active 2024 Lida Sandoval MD [address] [place] [address],[address], [address] [place] [address] 5, [facility] 18:17:58 Paroxysmal atrial fibrillation 694502839 Active 2024 Lida Sandoval MD [address] [place] [address],[place] [address], [facility] 18:18:01 History of polyp of colon 817776264 Active 2024 Lida Sandoval MD [address] [place] [address],[address] [place] [address] 5, [facility] 18:18:03 Chronic idiopathic constipation 91785656 Active 2024 Lida Sandoval MD [address] [place] [address],[address] [address], [facility] 18:18:06 External hemorrhoids 33793559 Active 2024 Lida Sandoval MD [address] [place] [address],[address] [address], [facility] 18:18:08 Internal hemorrhoids grade II 103508274 Active 202401/18/25 : [place] tx [place] Tx #1: 04/13/25 Lida Sandoval MD [address] [place] [address],[address] [place] [address] 5, [facility] 18:19:18 Problem Notes None recorded. Procedures Surgical History Date Name Laterality Status Provider Name and Address Organization Details Recorded Time Anoscopy completed Lida Sandoval MD [address] [place] [address],[address], [place], [place], [address] [place] [address], [facility] 01/18/2025 18:05:59 4 Colonoscopy completed Lida Sandoval MD [address] [place] [address],[address], [place], [address], [facility] 01/18/2025 17:59:44 Imaging Results None recorded. Procedure Notes None recorded. Medical Equipment None Reported. Allergies Allergen ID Allergen Name Allergen Category Reaction Reaction Severity Criticality Documentation Date Start Date Code Code System Note Provider Name and Address Organization Details Recorded Time 07482 azithromy shirley medicatio n other Not available Not available 01/16/20252018 29742 RxNorm GI PROBL EMS Not Available [facility] 10:02:28 28194 cephalexi n medicatio n other Not available [facility] 01/16/20252018 2231 RxNorm Gi probl ems Not Available [facility] [place] 10:02:28 Medications Name Sig Start Date Stop [...] Quit many years ago Lida Sandoval MD [address] [place] [address],[address], [place], [address], [facility] 01/18/2025 17:58:48 Do You Have An Advance [...] Kidney Stones Y Hyperthyroidism N Hernia N Hypothyroidism N Glaucoma N Depression N COPD N Accidental Bowel Leakage N Headaches/Migraines N Deep Vein Thrombosis N Cardiac Dysrhythmia N Anxiety Disorder N MRSA/VRE Exposure N Genital Herpes N Diverticulosis Y Cancer N Stroke Y Head Trauma Y Genital Warts N Crohn's Disease N Liver Disease/Hepatitis N HIV/AIDS N High [...] ICD10 Code Diagnosis IMO Codes Diagnosis Note [id number] Lida Sandoval MD Main Office [address] [phone] 01/18/2025 12:04:22 01/18/2025 13:22:22 Internal hemorrhoids grade II 118897891 K64.1 [id number] Stage 2 - 3 internal hemorrhoid s: [...] specifical ly a month long trip to [facility] starting in early February). This does not [...] from this in 2019. External hemorrhoids 239 88940 K64.4 25204 These will improve with IRC. He understand [...] not at home. Chronic id iopathic constipation 79788095 K59.04 8835 This is not bad. He of course needs to consistent ly eat a high fiber diet and drink plenty of water. I advised he should start a low dose of docusate (start with 100 mg daily) and very slowly increase. I d/w him he is shooting for daily BM's that are consistent ly soft ([place] Scale type 4) and easy to pass. He should take it daily and forever once he figures out what dose works for him. He can also continue his acidophilu s. History of polyp of colon 444491667 Z86.0100 0268541 He evidently did have polyps on at least a couple of his scopes. His last scope was on 08/22/23 and was negative. He is due for a repeat at 5 years. Paroxysmal atrial fibrillation 428790457 I48.0 67220 He evidently has been in sinus rhythm [...] he does have bleeding. Mixed hyperlipidemia 267 270869 E78.2 87155 He takes the atorvastat in and follows routinely with his PCP. History of transient ischemic attack 880445589 Z86.73 [id number] This was in 2019 and was probably due to his a. fib. He is on the Xarelto as above. Health Concerns Section Related Observation LastModified by Organization Detai ls LastModified Time None Recorded Concern Status LastModified by Organization Details LastModified Time None Recorded Payers Encounter Date Sequence Insurance Name Policy Number Policy Fletcher Covered Member ID Fletcher Member ID Guarantor Name 01/18/2025 1 [facility] (MEDICARE REPLACEMENT/A DVANTAGE - PPO) [id number] Jimmy Juarez [id number] Jimmy Juarez Notes Date Note Type Note [...] BM's but they are not always soft ([place] Scale type 2 - 4). He fairly consistently eats a high fiber diet and drinks plenty of water. He tries to take psyllium but admits he forgets it a lot. Lida Sandoval MD [address] [facility],[address], [place], [address], [facility] 01/18/2025 18:26:43
--- NOTE | 2025-02-23 07:00 | ECG_ITS ---
Test Date: 2025-02-23 07:16:14 Measurements Intervals [place] Rate: 64 P: 0 [place]: 0 QRS: 37 QRSD: 90 T: 28 QT: 422 QTc: 436 Interpretive Statements ATRIAL FIBRILLATION ABNORMAL RHYTHM ECG No previous ECG available for comparison Electronically Signed On 02-23-2025 07:40:07 LANDSCAPE CREW MEMBER by Denton Schmidt M.D.
--- NOTE | 2025-02-23 07:00 | ECG_ITS ---
Test Date: 2025-02-23 09:03:15 Measurements Intervals [place] Rate: 58 P: 45 [place]: 249 QRS: 25 QRSD: 88 T: 24 QT: 466 QTc: 459 Interpretive Statements SINUS BRADYCARDIA Compared to ECG 02/23/2025 07:16:14 Atrial fibrillation no longer present Electronically Signed On 02-23-2025 13:35:27 TRANSFER PUMPER by Jim Harrison M.D.
--- NOTE | 2025-02-23 08:04 | WPDMODSED ---
Moderate Sedation Note-Pt Data Patient Data Diagnosis: Atrial fibrillation Present Complaint: Palpitation Procedure to be performed/Plan: DC cardioversion Allergies Allergy/AdvReac Type Severity Reaction Status Date / Time azithromycin AdvReac Severe BAD GI Verified 02/23/25 07:19 TRACT REACTION THAT HAD EFFECTS FOR 6 MONTHS Home Medications ?Medication ?Instructions ?Recorded ?Confirmed ?Type Adults Multivitamin 1 tab-cap PO DAILY 01/28/20 02/22/25 History sotalol 80 mg tablet 80 mg PO Q12HR #60 tabs 05/17/20 02/23/25 Rx valacyclovir 1 gram tablet 1,000 mg PO Q12H PRN cold sores 10/12/21 02/22/25 Rx (Valtrex) #60 tabs rivaroxaban 20 mg tablet (Xarelto) See Rx Instructions .Route 05/06/22 02/22/25 Rx .COMPLEX #30 tabs Lactobacillus acidophilus 2 mmu cells PO DAILY 08/18/23 02/22/25 History atorvastatin 20 mg tablet 20 mg PO DAILY #100 tabs 04/11/24 02/23/25 Rx sildenafil 25 mg tablet 25 mg PO DAILY PRN sexual activity 07/05/24 02/22/25 Rx #7 tabs Sedation/Anesthesia: No previous sedation/anesthesia problems (including family history). 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, likely benign, patient declined CT surgery referral Liver cyst MRI abdomen, 2022, benign History of TIA (transient ischemic attack) New onset atrial fibrillation BMI 30.0-30.9,adult Hyperlipidemia Surgical History Surgical History History of right knee surgery removal of nail Family History Family History Mother Alzheimer disease Mother Family history of Alzheimer's disease Social History Social History Smoking status: Never smoker Second hand tobacco smoke exposure: No Smoking end date: 03/31/76 Alcohol intake: current Drinks per week: 1 Alcohol use details: DRINKS/WINE/BEER Substance use: never Substance use type: does not use Lack of Transportation: No Lack of Food: Never True Current Housing: I Have Housing Concerned About Future Housing: No Difficulty Paying Gas/Electric Bills: No Difficulty Paying for Meds: No Currently Unemployed: No Education: Master's Degree or Higher Difficulty w/ Childcare or Family Care: No Living arrangements: with family Gender identity (if verbalized by the patient): Male Sexual Orientation (if Verbalized by the Patient): Straight or Heterosexual Spiritual care concerns: No Agree to blood products: Yes Mod Sed Physical Exam Physical Exam Pre Procedural Exam: Normal: Appearance, Neck, Throat, Airway, Lungs, Heart Size, Neuro Exam and Extremities and Variation: Heart Rate and Heart Rhythm (Irregularly irregular) Hours since solid foods: 12 Hours since liquid intake: 12 Mallampati Classification: class II Internal Medicine - PN: Obj Da Vital Signs Vital Signs: Vital Signs - 24 hr 02/23/25 07:20 Temperature 36.4 C Pulse Rate 64 Respiratory Rate 16 Blood Pressure 134/95 H Pulse Oximetry 97 Oxygen Delivery Room Air Labs 02/23/25 07:25 ASA Classification/Sedation ASA Classification/Sedation ASA Class: II Emergent: No Risks: Risks, benefits and alternatives explained and patient/family accepted plan for sedation. Patient re-evaluated immediately prior to sedation.
[2025-02-23 08:50] LABS: Anion Gap 8 mmol/L (4-12); Blood Urea Nitrogen 13 mg/dL (9-20); Calcium 9.4 mg/dL (8.4-10.2); Carbon Dioxide 24 mmol/L (22-30); Chloride 108 mmol/L (98-107); Estimated CRCL calculation 60 ml/min; Estimated Glomerular Filt Rate > 60; Glucose 112 mg/dL (65-110); Magnesium 2.2 mg/dL (1.6-2.3); Potassium 4.2 mmol/L (3.4-5.0); Sodium 140 mmol/L (137-145)
--- NOTE | 2025-02-23 09:07 | P.PCNCC_ITS ---
Cardiac Cath Procedure Note Date of procedure:: 02/23/25 Performing physician:: Denton Schmidt MD Indication:: Recurrent atrial fibrillation Brief clinical history:: This is a 69-year-old man with a history of paroxysmal atrial fibrillation who was noted in the office during a recent follow-up visit to be experiencing recurrent atrial fib. He is taking sotalol and Xarelto and has not missed any doses. He was recommended to have a cardioversion she has a to restore sinus rhythm Procedure Procedure performed:: DC cardioversion Sedation/Medication given:: IV propofol total dosage of 70 mg given in aliquots Estimated blood loss:: No blood loss Procedure note:: Patient was brought to the cardiac catheterization lab holding area in the postabsorptive state. Defibrillator patches were placed in AP position and IV access was established in the right arm. The defibrillator was turned on at 200 joules output in a synchronized mode. He was then sedated with propofol. He was then counter shocked x1 with 200 joules restoring sinus rhythm Findings:: As above Conclusion:: Successful uncomplicated DC cardioversion using 200 joules x1 shock terminating atrial fib restoring sinus rhythm/sinus bradycardia Denton Schmidt MD [facility]
[2025-02-23] MEDS: PROPOFOL IV EMULSION 200 MG/20 ML VIAL 70 MG IV PUSH (09:12)
== END 2025-02-23 10:07 | disposition home or self-care (01) ==
PROVIDERS: PCP Family Medicine; Visit Provider Specialist
PROC: 5A2204Z Restoration of Cardiac Rhythm, Single (ICD-10-PCS; principal; 2025-02-23 08:30)
DX: I48.0 Paroxysmal atrial fibrillation (principal)
CPT/HCPCS: 36415; 80048; 83735; 92960; J2704; J7040